=== PATIENT | male | born 1990 | race Caucasian/White ===

== ENCOUNTER 2016-07-21 07:17 | Emergency (ER) | payer BC ==
--- NOTE | 2016-07-21 07:48 | EDM.PDOC ---
ED HPI GENERAL MEDICAL PROBLEM - General Chief Complaint: Chest Pain Stated Complaint: CHEST PAIN Time Seen by Provider: 07/21/16 07:28 Source of Information: Reports: Patient History Limitations: Reports: No limitations - History of Present Illness INITIAL COMMENTS - FREE TEXT/NARRATIVE: History of present illness: [] Patient has had months of right upper quadrant abdominal pain and epigastric pain. His last episode was more than 2 days ago. He comes into the ER complaining of dizziness and nausea. He stated his told him to see a doctor today so that he could figure out why he is having his abdominal pain. He has not had any fevers, chills, cough or diarrhea. He states he has vomited a few times the past couple days but not today. Patient denies taking any meds other than a couple of ibuprofen as needed for aches and pains. Patient admits to drinking a few beers last night to get comfortable. Review of systems: As per history of present illness and below otherwise all systems reviewed and negative. Past medical history: As per history of present illness and as reviewed below otherwise noncontributory. Surgical history: As per history of present illness and as reviewed below otherwise noncontributory. Social history: No reported history of drug or alcohol abuse. Family history: As per history of present illness and as reviewed below otherwise noncontributory. Physical exam: General: Well developed, well nourished in NAD HEENT: Atraumatic, normocephalic, pupils reactive, negative for conjunctival pallor or scleral icterus, mucous membranes moist, throat clear, neck supple, nontender, trachea midline. Lungs: Clear to auscultation, breath sounds equal bilaterally, chest nontender. Heart: S1S2, regular, negative for clicks, rubs, or JVD. Abdomen: Soft, nondistended, mild tenderness in right upper quadrant no rebound or guarding. He has no crepitance or tenderness over his ribs. Negative for masses or hepatosplenomegaly. Negative for costovertebral tenderness. Pelvis: Stable nontender. Genitourinary: Deferred. Rectal: Deferred. Extremities: Atraumatic, negative for cords or calf pain. Neurovascular unremarkable. Neuro: Awake, alert, oriented. Cranial nerves II through XII unremarkable. Cerebellum unremarkable. Motor and sensory unremarkable throughout. Exam nonfocal. Diagnostics: [] Labs and x-rays done. He has mild elevation in his transaminases otherwise workup is negative Therapeutics: [] Impression: [] Right upper quadrant pain likely due to liver irritation patient needs to be worked up for hepatitis I recommended he stop all alcohol currently not taking any medications at her concerning. Plan: [] Followup with primary care physician for further workup Definitive disposition and diagnosis as appropriate pending reevaluation and review of above. Chest Pain Score (Numeric/FACES): 0 - Related Data Allergies Allergy/AdvReac Type Severity Reaction Status Date / Time No Known Allergies Allergy Verified 05/07/14 11:25 Home Meds: Home Meds . [No Known Home Meds] 05/07/14 [History] Past Medical History - Past Health History Medical/Surgical History: Denies Medical/Surgical History Social & Family History - Tobacco Use Smoking Status *Q: Never Smoker Years of Tobacco use: 10 Second Hand Smoke Exposure: No - Caffeine Use Caffeine Use: Reports: Soda, Tea - Alcohol Use Days Per Week of Alcohol Use: 4 Number of Drinks Per Day: 3 Total Drinks Per Week: 12 - Recreational Drug Use Recreational Drug Use: No ED ROS GENERAL - Review of Systems Review Of Systems: See Below (See history of present illness) ED EXAM, GI/ABD - Physical Exam Exam: See Below (See history of present illness) Course - Vital Signs Last Recorded V/S: Last Vital Signs Temp 36.3 C 07/21/16 08:22 Pulse 82 07/21/16 08:22 Resp 18 07/21/16 08:22 BP 128/81 07/21/16 08:22 Pulse Ox 96 07/21/16 08:22 - Orders/Labs/Meds Orders: Active Orders 24 hr Category Date Time Status EKG Documentation Completion [RC] STAT Care 07/21/16 07:28 Active Labs: Laboratory Tests 07/21/16 07/21/16 07/21/16 Range/Units 07:58 07:58 07:58 WBC 5.90 (4.0-11.0) K/uL RBC 4.62 (4.50-5.90) M/uL Hgb 16.0 (13.0-17.0) g/dL Hct 44.4 (38.0-50.0) % MCV 96.1 (80.0-98.0) fL MCH 34.6 H (27.0-32.0) pg MCHC 36.0 (31.0-37.0) g/dL RDW Std Deviation 46.1 (28.0-62.0) fl RDW Coeff of Raz 13 (11.0-15.0) % Plt Count 225 (150-400) K/uL MPV 10.10 (7.40-12.00) fL Neut % (Auto) 54.8 (48.0-80.0) % Lymph % (Auto) 33.2 (16.0-40.0) % [place] % (Auto) 8.8 (0.0-15.0) % Eos % (Auto) 2.9 (0.0-7.0) % Baso % (Auto) 0.3 (0.0-1.5) % Neut # (Auto) 3.2 (1.4-5.7) K/uL Lymph # (Auto) 2.0 (0.6-2.4) K/uL [place] # (Auto) 0.5 (0.0-0.8) K/uL Eos # (Auto) 0.2 (0.0-0.7) K/uL Baso # (Auto) 0.0 (0.0-0.1) K/uL Nucleated RBC % 0.0 /100WBC Nucleated RBCs # 0 K/uL Sodium 140 (136-146) mmol/L Potassium 3.7 (3.5-5.1) mmol/L Chloride 104 (98-110) mmol/L Carbon Dioxide 24 (21-31) mmol/L BUN 7 (6.0-23.0) mg/dL Creatinine 1.0 (0.6-1.5) mg/dL Est Cr Clr Drug Dosing 121.79 mL/min Estimated GFR (MDRD) > 60.0 ml/min Glucose 93 (60-110) mg/dL Calcium 9.1 (8.8-10.8) mg/dL Total Bilirubin 0.3 (0.1-1.5) mg/dL AST 59 H (5-40) IU/L ALT 69 H (8-54) IU/L Alkaline Phosphatase 94 (40-150) Troponin I < 0.10 (0.0-0.29) NG/ML Total Protein 7.4 (6.0-8.0) g/dL Albumin 4.1 (3.5-5.0) g/dL Globulin 3.3 (2.0-3.5) g/dL Albumin/Globulin Ratio 1.2 L (1.3-2.8) Lipase 45 (7-80) U/L Meds: Medications Discontinued Medications Generic Name Dose Route Start Last Admin Trade Name Freq PRN Reason Stop Dose Admin Meclizine HCl 25 mg 07/21/16 08:31 07/21/16 08:38 Antivert PO 07/21/16 08:32 25 mg ONETIME ONE Administration Ondansetron HCl 4 mg 07/21/16 08:31 07/21/16 08:38 Zofran Odt PO 07/21/16 08:32 4 mg ONETIME ONE Administration Departure - Departure Time of Disposition: 08:54 Disposition: Home, Self-Care 01 Condition: good Clinical Impression: Elevated transaminase level - Discharge Information Forms: ED Department Discharge Additional Instructions: The following information is given to patients seen in the emergency department who are being discharged to home. This information is to outline your options for follow-up care. We provide all patients seen in our emergency department with a follow-up referral. The need for follow-up, as well as the timing and circumstances, are variable depending upon the specifics of your emergency department visit. If you don't have a primary care physician on staff, we will provide you with a referral. We always advise you to contact your personal physician following an emergency department visit to inform them of the circumstance of the visit and for follow-up with them and/or the need for any referrals to a consulting specialist. The emergency department will also refer you to a specialist when appropriate. This referral assures that you have the opportunity for follow-up care with a specialist. All of these measure are taken in an effort to provide you with optimal care, which includes your follow-up. Under all circumstances we always encourage you to contact your private physician who remains a resource for coordinating your care. When calling for follow-up care, please make the office aware that this follow-up is from your recent emergency room visit. If for any reason you are refused follow-up, please contact the [facility] Emergency Department at and asked to speak to the emergency department charge nurse. Stop alcohol use Followup with primary care for further workup for liver disease. [facility] [address] [place] [id number] - My Orders Last 24 Hours: My Active Orders 07/21/16 07:28 EKG Documentation Completion [RC] STAT - Assessment/Plan Last 24 Hours: My Active Orders 07/21/16 07:28 EKG Documentation Completion [RC] STAT
[2016-07-21] MEDS ORDERED: Meclizine 25 MG Tab PO ONE (08:31)
[2016-07-21] MEDS ORDERED: Ondansetron 4 MG Tab.DIS PO ONE (08:31)
[2016-07-21 08:32] LABS: CHLORIDE,CL 104 mmol/L (98-110); SODIUM,NA 140 mmol/L (136-146)
--- NOTE | 2016-07-21 08:45 | CR ---
EXAMINATION: Portable chest radiograph. HISTORY: Shortness of breath. FINDINGS: The trachea is midline. The cardiomediastinal silhouette is within normal limits. No pulmonary infil trates, effusions or pneumothorax. Osseous structures appear unremarkable. IMPRESSION: No acute cardiopulmonary process.
[2016-07-21 09:08] VITALS: BP 126/75
== END 2016-07-21 09:09 | disposition home or self-care (01) ==
LOC: MW.ED 07:17
DX: R74.0 Nonspecific elevation of levels of transaminase and lactic acid dehydrogenase [LDH] (principal)
CPT/HCPCS: 36415; 71010; 80053; 83690; 84484; 85025; 93005; 99285; A9270; 99283

== ENCOUNTER → 2016-07-28 | Outpatient (CLI) | payer BC | LOC: MW.CHIM 15:03 | PROVIDERS: ATTEND Internal Medicine | DX: R10.9 Unspecified abdominal pain (principal); R74.8 Abnormal levels of other serum enzymes | CPT/HCPCS: 36415; 80074 ==

== ENCOUNTER → 2016-07-30 | Outpatient (CLI) | payer BC ==
--- NOTE | 2016-07-30 16:12 | US ---
EXAMINATION: Abdominal ultrasound HISTORY: Abnormal serum enzymes COMPARISON: None TECHNIQUE: Grayscale and color Doppler images obtained of the abdomen FINDINGS: The visualized pancreas appears normal. The visualized IVC and aorta appear normal. The li robina is normal in contour and echogenicity without a focal hepatic mass. The gallbladder wall thickne ss is normal. No pericholecystic fluid or shadowing gallstones. The common bile duct measures 3 mm. The spleen appears normal. The right kidney measures 10 cm and the left kidney measures 11.8 cm pole -to-pole without evidence of hydronephrosis. Normal color Doppler flow bilaterally. No abdominal asc ites. The visualized bladder appears normal. Negative sonographic Hein sign. IMPRESSION: 1. Grossly unremarkable abdominal ultrasound.
== END ==
LOC: MW.US 14:28
PROVIDERS: ATTEND Internal Medicine
DX: R74.8 Abnormal levels of other serum enzymes (principal)
CPT/HCPCS: 76700; 76700-26

== ENCOUNTER 2016-08-10 08:56 | Emergency (ER) | payer BC ==
[2016-08-10] MEDS ORDERED: Diphtheria,Pertussis(Acell),Tetanus Vaccine 0.5 ML Syringe IM ONE (09:01)
[2016-08-10] MEDS ORDERED: Lidocaine 1% 20 ML MDV INJECT ONE (09:02)
--- NOTE | 2016-08-10 09:04 | EDM.PDOC ---
ED HPI GENERAL MEDICAL PROBLEM - General Chief Complaint: Laceration Stated Complaint: CUT Time Seen by Provider: 08/10/16 09:03 Source of Information: Reports: Patient - History of Present Illness INITIAL COMMENTS - FREE TEXT/NARRATIVE: HISTORY AND PHYSICAL: History of present illness: [] Patient presents with laceration right first PIP after punching his pickup, multiple small superficial for patients on the first second and third digits and his knuckles, there is a 2 cm laceration over PIP, no obvious deformity of the hand or digits all laceration as described tendon function intact pre-and post suture entirely neurovascularly intact No fever nausea vomiting chills sweats Review of systems: As per history of present illness and below otherwise all systems reviewed and negative. Past medical history: As per history of present illness and as reviewed below otherwise noncontributory. Surgical history: As per history of present illness and as reviewed below otherwise noncontributory. Social history: No reported history of drug or alcohol abuse. Family history: As per history of present illness and as reviewed below otherwise noncontributory. Physical exam: HEENT: Atraumatic, normocephalic, pupils reactive, negative for conjunctival pallor or scleral icterus, mucous membranes moist, throat clear, neck supple, nontender, trachea midline. Lungs: Clear to auscultation, breath sounds equal bilaterally, chest nontender. Heart: S1S2, regular, negative for clicks, rubs, or JVD. Abdomen: Soft, nondistended, nontender. Negative for masses or hepatosplenomegaly. Negative for costovertebral tenderness. Pelvis: Stable nontender. Genitourinary: Deferred. Rectal: Deferred. Extremities: Atraumatic, negative for cords or calf pain. Neurovascular unremarkable. Neuro: Awake, alert, oriented. Cranial nerves II through XII unremarkable. Cerebellum unremarkable. Motor and sensory unremarkable throughout. Exam nonfocal. Skin as per history of present illness otherwise unremarkable Diagnostics: [] Patient refused x-ray right hand to rule out foreign body or fracture Therapeutics: DTaP Lidocaine #2 4-0 Prolene sutures interrupted no complication or complaint Cleansed and explored Impression: [] Laceration 2 cm linear laceration Definitive disposition and diagnosis as appropriate pending reevaluation and review of above. right index Pain Score (Numeric/FACES): 2 - Related Data Allergies Allergy/AdvReac Type Severity Reaction Status Date / Time No Known Allergies Allergy Verified 08/10/16 09:01 Home Meds: Home Meds . [No Known Home Meds] 05/07/14 [History] Past Medical History - Past Health History Medical/Surgical History: Denies Medical/Surgical History Social & Family History - Tobacco Use Smoking Status *Q: Never Smoker Years of Tobacco use: 10 Second Hand Smoke Exposure: No - Caffeine Use Caffeine Use: Reports: Soda, Tea - Alcohol Use Days Per Week of Alcohol Use: 4 Number of Drinks Per Day: 3 Total Drinks Per Week: 12 - Recreational Drug Use Recreational Drug Use: No ED ROS GENERAL - Review of Systems Review Of Systems: ROS reveals no pertinent complaints other than HPI. ED EXAM, SKIN/RASH Exam: See Below Course - Vital Signs Last Recorded V/S: Last Vital Signs Temp 36.5 C 08/10/16 09:02 Pulse 105 H 08/10/16 09:02 Resp 16 08/10/16 09:02 BP 131/84 08/10/16 09:02 Pulse Ox 96 08/10/16 09:02 - Orders/Labs/Meds Orders: Active Orders 24 hr Category Date Time Status Vaccines to be Administered [RC] PER UNIT ROUTINE Care 08/10/16 09:03 Active Meds: Medications Discontinued Medications Generic Name Dose Route Start Last Admin Trade Name Alex PRN Reason Stop Dose Admin Diphtheria/Tetanus/Acell Pertussis 0.5 ml 08/10/16 09:01 08/10/16 09:13 Adacel IM 08/10/16 09:02 0.5 ml .ONCE ONE Administration Lidocaine HCl 20 ml 08/10/16 09:02 08/10/16 09:13 Xylocaine 1% INJECT 08/10/16 09:03 20 ml ONETIME ONE Administration Departure - Departure Time of Disposition: 09:26 Disposition: Home, Self-Care 01 Condition: good Clinical Impression: Laceration - Discharge Information Forms: ED Department Discharge Additional Instructions: Standard wound care Keep wound clean and dry for 48 hours Medication as prescribed--Keflex 500 mg by mouth twice a day #20 no refill Return if read warmth or pus drainage she did develop Sutures out in 10 days [facility] [address] [place] [id number] The following information is given to patients seen in the emergency department who are being discharged to home. This information is to outline your options for follow-up care. We provide all patients seen in our emergency department with a follow-up referral. The need for follow-up, as well as the timing and circumstances, are variable depending upon the specifics of your emergency department visit. If you don't have a primary care physician on staff, we will provide you with a referral. We always advise you to contact your personal physician following an emergency department visit to inform them of the circumstance of the visit and for follow-up with them and/or the need for any referrals to a consulting specialist. The emergency department will also refer you to a specialist when appropriate. This referral assures that you have the opportunity for follow-up care with a specialist. All of these measure are taken in an effort to provide you with optimal care, which includes your follow-up. Under all circumstances we always encourage you to contact your private physician who remains a resource for coordinating your care. When calling for follow-up care, please make the office aware that this follow-up is from your recent emergency room visit. If for any reason you are refused follow-up, please contact the [facility] emergency department at and asked to speak to the emergency department charge nurse. - My Orders Last 24 Hours: My Active Orders 08/10/16 09:03 Vaccines to be Administered [RC] PER UNIT ROUTINE - Assessment/Plan Last 24 Hours: My Active Orders 08/10/16 09:03 Vaccines to be Administered [RC] PER UNIT ROUTINE
[2016-08-10 09:39] VITALS: BP 127/78
== END 2016-08-10 09:36 | disposition home or self-care (01) ==
LOC: MW.ED 08:56
DX: S61.210A Laceration without foreign body of right index finger without damage to nail, initial encounter (principal); Z23 Encounter for immunization; W22.8XXA Striking against or struck by other objects, initial encounter
CPT/HCPCS: 12001; 90471; 90715; 99282; 99283-25

== ENCOUNTER 2019-01-12 05:43 | Emergency (ER) | payer BC, OTHER ==
[2019-01-12] MEDS ORDERED: LORazepam 2 MG/ML SDV IVPUSH ONE (06:12)
[2019-01-12] MEDS ORDERED: Sodium Chloride 0.9% 10 ML Syringe FLUSH PRN (06:12)
[2019-01-12] MEDS ORDERED: Ondansetron 4 MG/2 ML SDV IVPUSH ONE (06:12)
[2019-01-12] MEDS ORDERED: Sodium Chloride 0.9% 2.5 ML Syringe FLUSH PRN (06:12)
--- NOTE | 2019-01-12 06:15 | EDM.PDOC ---
ED HPI GENERAL MEDICAL PROBLEM - General Chief Complaint: Drug or Alcohol Abuse Stated Complaint: VOMITING, ANXIETY, ALCOHOL Time Seen by Provider: 01/12/19 05:55 Source of Information: Reports: Patient History Limitations: Reports: No Limitations - History of Present Illness INITIAL COMMENTS - FREE TEXT/NARRATIVE: History of present illness: []Patient has been binge drinking for 4 days, his last drink was last night at around 6 PM and has been vomiting continuously since midnight. Patient has done this several times in the past and usually treated at [facility]. Patient's primary doctor has him on Ativan twice a day for anxiety. Patient is requesting hydration and does not want go through detox. Review of systems: As per history of present illness and below otherwise all systems reviewed and negative. Past medical history: As per history of present illness and as reviewed below otherwise noncontributory. Surgical history: As per history of present illness and as reviewed below otherwise noncontributory. Social history: No reported history of drug or alcohol abuse. Family history: As per history of present illness and as reviewed below otherwise noncontributory. Physical exam: General: Well developed, well nourished in NAD HEENT: Atraumatic, normocephalic, pupils reactive, negative for conjunctival pallor or scleral icterus, mucous membranes moist, throat clear, neck supple, nontender, trachea midline. Lungs: Clear to auscultation, breath sounds equal bilaterally, chest nontender. Heart: S1S2, regular, negative for clicks, rubs, or JVD. Abdomen: NABS, Soft, nondistended, nontender. Negative for masses or hepatosplenomegaly. Negative for costovertebral tenderness. Pelvis: Stable nontender. Genitourinary: Deferred. Rectal: Deferred. Extremities: Atraumatic, negative for cords or calf pain. Neurovascular unremarkable. Neuro: Awake, alert, oriented. Cranial nerves II through XII unremarkable. Cerebellum unremarkable. Motor and sensory unremarkable throughout. Exam nonfocal. Skin:warm and dry Diagnostics: CBC, chemistry Therapeutics: IV hydration, Zofran, Ativan ED Course: stable Impression: Alcohol withdrawal Prescriptions: Librium, Zofran Plan: Take meds as directed, follow up with your primary care physician, return to ER if symptoms worsen or change. Definitive disposition and diagnosis as appropriate pending reevaluation and review of above. - Related Data Allergies Allergy/AdvReac Type Severity Reaction Status Date / Time No Known Allergies Allergy Verified 09/17/17 09:26 MDT Home Meds: Home Meds LORazepam [Ativan] 0.5 mg PO TID PRN 01/12/19 [History] Ondansetron HCl [Zofran] 4 mg PO Q4HR #12 tablet 01/12/19 [Rx] chlordiazePOXIDE [Librium] 25 mg PO TID #15 cap 01/12/19 [Rx] Past Medical History - Past Health History Medical/Surgical History: Denies Medical/Surgical History HEENT History: Reports: None Gastrointestinal History: Reports: GERD Psychiatric History: Reports: Addiction, Anxiety, Depression Other Psychiatric History: etoh abuse - Past Surgical History HEENT Surgical History: Reports: Adenoidectomy, Tonsillectomy Musculoskeletal Surgical History: Reports: Other (See Below) Other Musculoskeletal Surgeries/Procedures:: right hand sx Social & Family History - Family History Family Medical History: Noncontributory - Tobacco Use Years of Tobacco use: 10 Packs/Tins Daily: 1 - Caffeine Use Caffeine Use: Reports: Soda, Tea Caffeine Use Comment: 1 cup a week - Recreational Drug Use Recreational Drug Use: No ED ROS GENERAL - Review of Systems Review Of Systems: See Below ED EXAM, GENERAL - Physical Exam Exam: See Below Course - Vital Signs Last Recorded V/S: Last Vital Signs Temp 97.7 F 01/12/19 05:50 Pulse 73 01/12/19 05:50 Resp 16 01/12/19 05:50 BP 128/71 01/12/19 05:50 Pulse Ox 97 01/12/19 05:50 - Orders/Labs/Meds Orders: Active Orders 24 hr Category Date Time Status Sodium Chloride 0.9% [Saline Flush] Med 01/12/19 06:12 Active 10 ml FLUSH ASDIRECTED PRN Sodium Chloride 0.9% [Saline Flush] Med 01/12/19 06:12 Active 2.5 ml FLUSH ASDIRECTED PRN Saline Lock Insert [OM.PC] Stat Oth 01/12/19 06:12 Ordered Medication Orders Sodium Chloride (Saline Flush) 10 ml FLUSH ASDIRECTED PRN PRN Reason: Keep Vein Open Sodium Chloride (Saline Flush) 2.5 ml FLUSH ASDIRECTED PRN PRN Reason: Keep Vein Open Labs: Laboratory Tests 01/12/19 01/12/19 Range/Units 06:25 06:25 WBC 8.42 (4.0-11.0) K/uL RBC 4.65 (4.50-5.90) M/uL Hgb 15.6 (13.0-17.0) g/dL Hct 42.2 (38.0-50.0) % MCV 90.8 (80.0-98.0) fL MCH 33.5 H (27.0-32.0) pg MCHC 37.0 (31.0-37.0) g/dL RDW Std Deviation 45.6 (28.0-62.0) fl RDW Coeff of Raz 14 (11.0-15.0) % Plt Count 230 (150-400) K/uL MPV 10.30 (7.40-12.00) fL Neut % (Auto) 78.1 (48.0-80.0) % Lymph % (Auto) 13.7 L (16.0-40.0) % [place] % (Auto) 8.0 (0.0-15.0) % Eos % (Auto) 0.0 (0.0-7.0) % Baso % (Auto) 0.2 (0.0-1.5) % Neut # (Auto) 6.6 H (1.4-5.7) K/uL Lymph # (Auto) 1.2 (0.6-2.4) K/uL [place] # (Auto) 0.7 (0.0-0.8) K/uL Eos # (Auto) 0.0 (0.0-0.7) K/uL Baso # (Auto) 0.0 (0.0-0.1) K/uL Nucleated RBC % 0.0 /100WBC Nucleated RBCs # 0 K/uL Sodium 142 (136-148) mmol/L Potassium 3.4 L (3.5-5.1) mmol/L Chloride 101 (98-107) mmol/L Carbon Dioxide 25.5 (21.0-32.0) mmol/L BUN 6 L (7.0-18.0) mg/dL Creatinine 1.0 (0.8-1.3) mg/dL Est Cr Clr Drug Dosing 122.07 mL/min Estimated GFR (MDRD) > 60.0 ml/min Glucose 82 (74-106) mg/dL Calcium 9.7 (8.5-10.1) mg/dL Total Bilirubin 0.6 (0.2-1.0) mg/dL AST 49 H (15-37) IU/L ALT 72 H (14-63) IU/L Alkaline Phosphatase 85 (46-116) U/L Total Protein 7.8 (6.4-8.2) g/dL Albumin 4.3 (3.4-5.0) g/dL Globulin 3.5 (2.6-4.0) g/dL Albumin/Globulin Ratio 1.2 (0.9-1.6) Meds: Medications Generic Name Dose Route Start Last Admin Trade Name Freq PRN Reason Stop Dose Admin Sodium Chloride 10 ml 01/12/19 06:12 Saline Flush FLUSH ASDIRECTED PRN Keep Vein Open Sodium Chloride 2.5 ml 01/12/19 06:12 Saline Flush FLUSH ASDIRECTED PRN Keep Vein Open Discontinued Medications Generic Name Dose Route Start Last Admin Trade Name Freq PRN Reason Stop Dose Admin Lorazepam 1 mg 01/12/19 06:12 01/12/19 06:29 Ativan IVPUSH 01/12/19 06:13 1 mg ONETIME ONE Administration Ondansetron HCl 4 mg 01/12/19 06:12 01/12/19 06:29 Zofran IVPUSH 01/12/19 06:13 4 mg ONETIME ONE Administration Departure - Departure Time of Disposition: 07:10 Disposition: Home, Self-Care 01 Condition: Good Clinical Impression: Alcohol withdrawal Qualifiers: Complication of substance-induced condition: uncomplicated Qualified Code(s): F10.230 - Alcohol dependence with withdrawal, uncomplicated - Discharge Information *PRESCRIPTION DRUG MONITORING PROGRAM REVIEWED*: No *COPY OF PRESCRIPTION DRUG MONITORING REPORT IN PATIENT PAULO: No Prescriptions: Ondansetron HCl [Zofran] 4 mg PO Q4HR #12 tablet chlordiazePOXIDE [Librium] 25 mg PO TID #15 cap Referrals: PCP,None [Primary Care Provider] - Forms: ED Department Discharge Additional Instructions: The following information is given to patients seen in the emergency department who are being discharged to home. This information is to outline your options for follow-up care. We provide all patients seen in our emergency department with a follow-up referral. The need for follow-up, as well as the timing and circumstances, are variable depending upon the specifics of your emergency department visit. If you don't have a primary care physician on staff, we will provide you with a referral. We always advise you to contact your personal physician following an emergency department visit to inform them of the circumstance of the visit and for follow-up with them and/or the need for any referrals to a consulting specialist. The emergency department will also refer you to a specialist when appropriate. This referral assures that you have the opportunity for follow-up care with a specialist. All of these measure are taken in an effort to provide you with optimal care, which includes your follow-up. Under all circumstances we always encourage you to contact your private physician who remains a resource for coordinating your care. When calling for follow-up care, please make the office aware that this follow-up is from your recent emergency room visit. If for any reason you are refused follow-up, please contact the [facility] Emergency Department at and asked to speak to the emergency department charge nurse. [facility] [address] [place] [address] - My Orders Last 24 Hours: My Active Orders 01/12/19 06:12 Sodium Chloride 0.9% [Saline Flush] 10 ml FLUSH ASDIRECTED PRN Sodium Chloride 0.9% [Saline Flush] 2.5 ml FLUSH ASDIRECTED PRN Saline Lock Insert [OM.PC] Stat - Assessment/Plan Last 24 Hours: My Active Orders 01/12/19 06:12 Sodium Chloride 0.9% [Saline Flush] 10 ml FLUSH ASDIRECTED PRN Sodium Chloride 0.9% [Saline Flush] 2.5 ml FLUSH ASDIRECTED PRN Saline Lock Insert [OM.PC] Stat
[2019-01-12 06:58] LABS: BLOOD UREA NITROGEN,BUN 6 mg/dL (7.0-18.0); CARBON DIOXIDE,CO2 25.5 mmol/L (21.0-32.0); CHLORIDE,CL 101 mmol/L (98-107); GLUCOSE RANDOM 82 mg/dL (74-106); POTASSIUM,K 3.4 mmol/L (3.5-5.1); SODIUM,NA 142 mmol/L (136-148)
[2019-01-12 08:11] VITALS: BP 108/60; PULSE 78
== END 2019-01-12 08:10 | disposition home or self-care (01) ==
LOC: MW.ED 05:43
DX: F10.230 Alcohol dependence with withdrawal, uncomplicated (principal); F41.9 Anxiety disorder, unspecified; F32.9 Major depressive disorder, single episode, unspecified; F17.200 Nicotine dependence, unspecified, uncomplicated; Z79.899 Other long term (current) drug therapy
CPT/HCPCS: 36415; 80053; 85025; 96374; 96375; 99284; J2060; J2405; 99283

== ENCOUNTER 2019-01-28 04:40 | Emergency (ER) | payer BC ==
[2019-01-28] MEDS ORDERED: Sodium Chloride 0.9% 10 ML Syringe FLUSH PRN (05:03)
[2019-01-28] MEDS ORDERED: Ondansetron 4 MG/2 ML SDV IVPUSH ONE (05:03)
[2019-01-28] MEDS ORDERED: Sodium Chloride 0.9% 2.5 ML Syringe FLUSH PRN (05:03)
[2019-01-28] MEDS ORDERED: LORazepam 2 MG/ML SDV IVPUSH ONE (05:03)
[2019-01-28] MEDS ORDERED: Sodium Chloride 0.9% 1,000 ML IV ONE (05:03)
--- NOTE | 2019-01-28 05:10 | EDM.PDOC ---
ED HPI GENERAL MEDICAL PROBLEM - General Chief Complaint: Drug or Alcohol Abuse Stated Complaint: PT IS GOING THROUGH WITHDRAWALS Time Seen by Provider: 01/28/19 04:53 - History of Present Illness INITIAL COMMENTS - FREE TEXT/NARRATIVE: HISTORY AND PHYSICAL: History of present illness: The patient is a 28-year-old male who is a chronic alcohol user and who was seen here the beginning of the month on January 12 for concerned about withdrawal after an episode of binge drinking and received Zofran and Librium for home and who represented this wording saying that he drank all night with his last drink about 11 PM and now he is concerned about nausea vomiting dehydration and early withdrawal symptoms. The patient also tells me he was in [place] last night in their ER for IV fluids. He did tell me that he has connected as an outpatient with a provider in [place] and was given some medication to help him quit alcohol use but he has not started those because he has been drinking alcohol. He says that he is discussed with this provider his addiction and his problems and he feels comfortable working with this provider. Here this evening he did drink this evening and then started having nausea and vomiting and feels dehydrated and shaky and somewhat anxious. He has a history of anxiety and has been on Ativan in the past for this. He has not had any trauma or falls and has no head neck or back pain no chest pain or shortness of breath no abdominal pain but has had the vomiting without diarrhea. He has no weakness numbness or tingling or pain in his extremities. The patient says that he used all the Zofran he was given from his last visit here in the ED and he did not think the Librium was working so he did not take it. Review of systems: As per history of present illness and below otherwise all systems reviewed and negative. Past medical history: As per history of present illness and as reviewed below otherwise noncontributory. Surgical history: As per history of present illness and as reviewed below otherwise noncontributory. Social history: No reported history of drug or alcohol abuse. Family history: As per history of present illness and as reviewed below otherwise noncontributory. Physical exam: General: Well-developed well-nourished man who is nontoxic and not tremulous on my evaluation. When he is talking to and distracted he has no evidence of any tremulousness but when he wants he will raise his hands and start voluntarily shaking them back and forth telling me that he is tremulous. He is not tachycardic and his other vital signs are noted by me. HEENT: Atraumatic, normocephalic, pupils reactive, negative for conjunctival pallor or scleral icterus, mucous membranes moist, throat clear, neck supple, nontender, trachea midline. Lungs: Clear to auscultation, breath sounds equal bilaterally, chest nontender. Heart: S1S2, regular rate and rhythm without any tachycardia and no overt murmurs are appreciated Abdomen: Soft, nondistended, nontender. Negative for masses or hepatosplenomegaly. Negative for costovertebral tenderness. Pelvis: Stable nontender. Genitourinary: Deferred. Rectal: Deferred. Extremities: Atraumatic, negative for cords or calf pain. Neurovascular unremarkable. Full range of motion without defects or tenderness. Neuro: Awake, alert, oriented. Cranial nerves II through XII unremarkable. Cerebellum unremarkable. Motor and sensory unremarkable throughout. Exam nonfocal. I do not see any involuntary tremulousness on my evaluation when the patient is at rest and distracted Diagnostics: CBC CMP magnesium Therapeutics: IV fluids Zofran Ativan I discussed with the patient that I could help him this morning with his vomiting and mild dehydration but I stressed to him that he cannot come to the emergency department either here or in [place] every night that he drinks to get IV fluids so that he doesn't feel dehydrated. I will give him Zofran for home. Explained to him that he is likely vomiting because alcohol is a gastric irritant and that if he refrains from drinking alcohol this symptom will dissipate. He states understanding and says that he will connect with his provider on an outpatient basis in [place] and discuss option plans going forward. Impression: Vomiting, shakiness and dehydration status post alcohol use and abuse, acute on chronic Definitive disposition and diagnosis as appropriate pending reevaluation and review of above. - Related Data Allergies Allergy/AdvReac Type Severity Reaction Status Date / Time No Known Allergies Allergy Verified 01/28/19 04:53 Home Meds: Home Meds Anti Anxiety Med 01/28/19 [History] Magnesium 400 mg PO BID 01/28/19 [History] Past Medical History - Past Health History Medical/Surgical History: Denies Medical/Surgical History HEENT History: Reports: None Gastrointestinal History: Reports: GERD Musculoskeletal History: Reports: None Psychiatric History: Reports: Addiction, Anxiety, Depression Other Psychiatric History: etoh abuse - Infectious Disease History Infectious Disease History: Reports: Chicken Pox - Past Surgical History HEENT Surgical History: Reports: Adenoidectomy, Tonsillectomy GI Surgical History: Reports: None Musculoskeletal Surgical History: Reports: Other (See Below) Other Musculoskeletal Surgeries/Procedures:: right hand sx Social & Family History - Family History Family Medical History: Noncontributory - Tobacco Use Smoking Status *Q: Never Smoker Second Hand Smoke Exposure: No - Caffeine Use Caffeine Use: Reports: None Caffeine Use Comment: 1 cup a week - Alcohol Use Days Per Week of Alcohol Use: 2 Number of Drinks Per Day: 2 Total Drinks Per Week: 4 - Recreational Drug Use Recreational Drug Use: No ED ROS GENERAL - Review of Systems Review Of Systems: Comprehensive ROS is negative, except as noted in HPI. ED EXAM, GENERAL - Physical Exam Exam: See Below (See dictation) Course - Vital Signs Last Recorded V/S: Last Vital Signs Temp 36.1 C 01/28/19 04:48 Pulse 83 01/28/19 04:48 Resp 19 01/28/19 04:48 BP 129/82 01/28/19 04:48 Pulse Ox 96 01/28/19 04:48 - Orders/Labs/Meds Orders: Active Orders 24 hr Category Date Time Status Sodium Chloride 0.9% [Normal Saline] 1,000 ml Med 01/28/19 05:03 Active IV STAT Sodium Chloride 0.9% [Saline Flush] Med 01/28/19 05:03 Active 10 ml FLUSH ASDIRECTED PRN Sodium Chloride 0.9% [Saline Flush] Med 01/28/19 05:03 Active 2.5 ml FLUSH ASDIRECTED PRN Saline Lock Insert [OM.PC] Stat Oth 01/28/19 05:00 Ordered Medication Orders Sodium Chloride (Normal Saline) 1,000 mls @ 999 mls/hr IV STAT ONE Stop: 01/28/19 06:03 Last Admin: 01/28/19 05:10 Dose: 999 mls/hr Sodium Chloride (Saline Flush) 10 ml FLUSH ASDIRECTED PRN PRN Reason: Keep Vein Open Sodium Chloride (Saline Flush) 2.5 ml FLUSH ASDIRECTED PRN PRN Reason: Keep Vein Open Labs: Laboratory Tests 01/28/19 01/28/19 Range/Units 05:05 05:05 WBC 8.64 (4.0-11.0) K/uL RBC 4.49 L (4.50-5.90) M/uL Hgb 14.8 (13.0-17.0) g/dL Hct 42.2 (38.0-50.0) % MCV 94.0 (80.0-98.0) fL MCH 33.0 H (27.0-32.0) pg MCHC 35.1 (31.0-37.0) g/dL RDW Std Deviation 48.3 (28.0-62.0) fl RDW Coeff of Raz 14 (11.0-15.0) % Plt Count 252 (150-400) K/uL MPV 9.80 (7.40-12.00) fL Neut % (Auto) 76.2 (48.0-80.0) % Lymph % (Auto) 18.1 (16.0-40.0) % Wells % (Auto) 5.2 (0.0-15.0) % Eos % (Auto) 0.3 (0.0-7.0) % Baso % (Auto) 0.2 (0.0-1.5) % Neut # (Auto) 6.6 H (1.4-5.7) K/uL Lymph # (Auto) 1.6 (0.6-2.4) K/uL Wells # (Auto) 0.5 (0.0-0.8) K/uL Eos # (Auto) 0.0 (0.0-0.7) K/uL Baso # (Auto) 0.0 (0.0-0.1) K/uL Nucleated RBC % 0.0 /100WBC Nucleated RBCs # 0 K/uL Sodium 138 (136-148) mmol/L Potassium 3.6 (3.5-5.1) mmol/L Chloride 101 (98-107) mmol/L Carbon Dioxide 22.9 (21.0-32.0) mmol/L BUN 6 L (7.0-18.0) mg/dL Creatinine 0.9 (0.8-1.3) mg/dL Est Cr Clr Drug Dosing 135.63 mL/min Estimated GFR (MDRD) > 60.0 ml/min Glucose 75 (74-106) mg/dL Calcium 8.8 (8.5-10.1) mg/dL Magnesium 1.8 (1.8-2.4) mg/dL Total Bilirubin 0.6 (0.2-1.0) mg/dL AST 35 (15-37) IU/L ALT 47 (14-63) IU/L Alkaline Phosphatase 83 (46-116) U/L Total Protein 7.6 (6.4-8.2) g/dL Albumin 4.1 (3.4-5.0) g/dL Globulin 3.5 (2.6-4.0) g/dL Albumin/Globulin Ratio 1.2 (0.9-1.6) Meds: Medications Generic Name Dose Route Start Last Admin Trade Name Freq PRN Reason Stop Dose Admin Sodium Chloride 1,000 mls @ 999 mls/hr 01/28/19 05:03 01/28/19 05:10 Normal Saline IV 01/28/19 06:03 999 mls/hr STAT ONE Administration Sodium Chloride 10 ml 01/28/19 05:03 Saline Flush FLUSH ASDIRECTED PRN Keep Vein Open Sodium Chloride 2.5 ml 01/28/19 05:03 Saline Flush FLUSH ASDIRECTED PRN Keep Vein Open Discontinued Medications Generic Name Dose Route Start Last Admin Trade Name Freq PRN Reason Stop Dose Admin Lorazepam 1 mg 01/28/19 05:03 01/28/19 05:14 Ativan IVPUSH 01/28/19 05:04 1 mg ONETIME ONE Administration Ondansetron HCl 4 mg 01/28/19 05:03 01/28/19 05:14 Zofran IVPUSH 01/28/19 05:04 4 mg ONETIME ONE Administration Departure - Departure Time of Disposition: 05:43 Disposition: Home, Self-Care 01 Condition: Good Clinical Impression: Alcohol abuse, Shakiness Vomiting Qualifiers: Vomiting type: unspecified Vomiting Intractability: non-intractable Nausea presence: with nausea Qualified Code(s): R11.2 - Nausea with vomiting, unspecified - Discharge Information Referrals: PCP,None [Primary Care Provider] - Forms: ED Department Discharge Additional Instructions: The following information is given to patients seen in the emergency department who are being discharged to home. This information is to outline your options for follow-up care. We provide all patients seen in our emergency department with a follow-up referral. The need for follow-up, as well as the timing and circumstances, are variable depending upon the specifics of your emergency department visit. If you don't have a primary care physician on staff, we will provide you with a referral. We always advise you to contact your personal physician following an emergency department visit to inform them of the circumstance of the visit and for follow-up with them and/or the need for any referrals to a consulting specialist. The emergency department will also refer you to a specialist when appropriate. This referral assures that you have the opportunity for followup care with a specialist. All of these measure are taken in an effort to provide you with optimal care, which includes your followup. Under all circumstances we always encourage you to contact your private physician who remains a resource for coordinating your care. When calling for followup care, please make the office aware that this follow-up is from your recent emergency room visit. If for any reason you are refused follow-up, please contact the [facility] emergency department at and ask to speak to the emergency department charge nurse. [facility] Primary care- [place] [address] Push hydration and eat bites of bland food and use Zofran as given to you from [facility] for nausea and vomiting. Please refrain from alcohol use as well as caffeine as these are irritants to stomach which can trigger vomiting and stomach upset. Please connect with your provider in [place] or one of ours for further care and help with your chronic alcohol issues. Return to ER as needed and as discussed - My Orders Last 24 Hours: My Active Orders 01/28/19 05:00 Saline Lock Insert [OM.PC] Stat 01/28/19 05:03 Sodium Chloride 0.9% [Normal Saline] 1,000 ml IV STAT Sodium Chloride 0.9% [Saline Flush] 10 ml FLUSH ASDIRECTED PRN Sodium Chloride 0.9% [Saline Flush] 2.5 ml FLUSH ASDIRECTED PRN - Assessment/Plan Last 24 Hours: My Active Orders 01/28/19 05:00 Saline Lock Insert [OM.PC] Stat 01/28/19 05:03 Sodium Chloride 0.9% [Normal Saline] 1,000 ml IV STAT Sodium Chloride 0.9% [Saline Flush] 10 ml FLUSH ASDIRECTED PRN Sodium Chloride 0.9% [Saline Flush] 2.5 ml FLUSH ASDIRECTED PRN
[2019-01-28 05:32] LABS: BLOOD UREA NITROGEN,BUN 6 mg/dL (7.0-18.0); CARBON DIOXIDE,CO2 22.9 mmol/L (21.0-32.0); CHLORIDE,CL 101 mmol/L (98-107); GLUCOSE RANDOM 75 mg/dL (74-106); POTASSIUM,K 3.6 mmol/L (3.5-5.1); SODIUM,NA 138 mmol/L (136-148)
[2019-01-28 06:15] VITALS: BP 105/66; PULSE 65
== END 2019-01-28 06:14 | disposition home or self-care (01) ==
LOC: MW.ED 04:40
DX: F10.20 Alcohol dependence, uncomplicated (principal); R25.1 Tremor, unspecified; R11.2 Nausea with vomiting, unspecified; F41.9 Anxiety disorder, unspecified; Z79.899 Other long term (current) drug therapy
CPT/HCPCS: 36415; 80053; 83735; 85025; 96361; 96374; 96375; 99283; J2060; J2405; J7040; 99284

== ENCOUNTER 2019-05-09 09:02 | Emergency (ER) | payer BC, OTHER ==
[2019-05-09] MEDS ORDERED: Ketorolac 30 MG/ML SDV IVPUSH ONE (10:04)
[2019-05-09] MEDS ORDERED: Sodium Chloride 0.9% 1,000 ML IV ONE (10:04)
[2019-05-09] MEDS ORDERED: Ondansetron 4 MG/2 ML SDV IVPUSH ONE (10:04)
--- NOTE | 2019-05-09 10:20 | EDM.PDOC ---
ED HPI GENERAL MEDICAL PROBLEM - General Chief Complaint: Gastrointestinal Problem Stated Complaint: VOMITING Time Seen by Provider: 05/09/19 09:54 Source of Information: Reports: Patient History Limitations: Reports: No Limitations - History of Present Illness INITIAL COMMENTS - FREE TEXT/NARRATIVE: HISTORY AND PHYSICAL: History of present illness: Patient is a 28-year-old male who presents to the ED today with concern of vomiting since last night. Patient states he has been sober from alcohol for the past 4 to 5 months and has not had a single drop of alcohol yesterday. Patient states he drank one 750 ounce bottle of hard alcohol yesterday and has been vomiting since last night. Patient states his last episode of vomiting was about an hour before coming to the ED. Patient states he has not tried to drink any fluids with fear of vomiting. Patient states he used to be addicted to alcohol and relapsed last night. Patient denies any health history or any other symptoms or concerns. Patient denies fever, chills, chest pain, shortness of breath, or cough. Denies headache, neck stiff ness, change in vision, syncope, or near syncope. Denies abdominal pain, diarrhea, constipation, or dysuria. Has not noted any blood in urine or stool. Patient has been eating and drinking appropriately. Review of systems: As per history of present illness and below otherwise all systems reviewed and negative. Past medical history: As per history of present illness and as reviewed below otherwise noncontributory. Surgical history: As per history of present illness and as reviewed below otherwise noncontributory. Social history: See social history for further information Family history: As per history of present illness and as reviewed below otherwise noncontributory. Physical exam: General: Patient is alert, oriented, and in no acute distress. Patient sitting comfortably on exam table. HEENT: Atraumatic, normocephalic, pupils equal and reactive bilaterally, negative for conjunctival pallor or scleral icterus, mucous membranes moist, TMs normal bilaterally, throat clear, neck supple, nontender, trachea midline. No drooling or trismus noted. No meningeal signs. No hot potato voice noted. Lungs: Clear to auscultation, breath sounds equal bilaterally, chest nontender. Heart: S1S2, regular rate and rhythm without overt murmur Abdomen: Soft, nondistended, nontender. Negative for masses or hepatosplenomegaly. Negative for costovertebral tenderness. Pelvis: Stable nontender. Genitourinary: Deferred. Rectal: Deferred. Skin: Intact, warm, dry. No lesions or rashes noted. Extremities: Atraumatic, negative for cords or calf pain. Neurovascular unremarkable. Neuro: Awake, alert, oriented. Cranial nerves II through XII unremarkable. Cerebellum unremarkable. Motor and sensory unremarkable throughout. Exam nonfocal. Notes: Patient has not had any episodes of vomiting today in the ED and able to tolerate p.o. intake without vomiting. Discussed importance for follow-up with a primary care provider as well as establishing with a treatment facility. Voices understanding and is agreeable to plan of care. Denies any further questions or concerns at this time. Diagnostics: CBC, CMP, UA, Lipase Therapeutics: NS, Zofran Prescription: Zofran Impression: h/o vomiting Alcohol abuse Plan: 1. Take medication as prescribed. Encourage small but frequent sips of fluid to prevent dehydration. 2. Follow-up with her primary care provider and treatment facility as discussed. Return to the ED as needed and as discussed. Definitive disposition and diagnosis as appropriate pending reevaluation and review of above. epigastric pain Pain Score (Numeric/FACES): 6 - Related Data Allergies Allergy/AdvReac Type Severity Reaction Status Date / Time No Known Allergies Allergy Verified 03/08/19 04:45 [facility] Home Meds: Home Meds Ondansetron [Zofran ODT] 4 mg PO Q6H PRN #8 tab.dis 05/09/19 [Rx] Past Medical History - Past Health History Medical/Surgical History: Denies Medical/Surgical History HEENT History: Reports: None Gastrointestinal History: Reports: GERD Musculoskeletal History: Reports: None Psychiatric History: Reports: Addiction, Anxiety Other Psychiatric History: etoh abuse - Infectious Disease History Infectious Disease History: Reports: Chicken Pox - Past Surgical History HEENT Surgical History: Reports: Adenoidectomy, Oral Surgery, Tonsillectomy Musculoskeletal Surgical History: Reports: ORIF Social & Family History - Family History Family Medical History: Noncontributory - Tobacco Use Smoking Status *Q: Current Every Day Smoker Years of Tobacco use: 10 Packs/Tins Daily: 1 - Caffeine Use Caffeine Use: Reports: Coffee Caffeine Use Comment: 1 cup a week - Recreational Drug Use Recreational Drug Use: No - Living Situation & Occupation Living situation: Reports: Single, with Significant Other (Girlfriend), with Family (2 kids) Occupation: Employed ED ROS GENERAL - Review of Systems Review Of Systems: Comprehensive ROS is negative, except as noted in HPI. ED EXAM, GENERAL - Physical Exam Exam: See Below (see dictation) Course - Vital Signs Last Recorded V/S: Last Vital Signs Temp 96.9 F 05/09/19 09:14 Pulse 89 05/09/19 09:14 Resp 16 05/09/19 09:14 BP 117/74 05/09/19 09:14 Pulse Ox 95 05/09/19 09:14 - Orders/Labs/Meds Orders: Active Orders 24 hr Category Date Time Status UA RFX ALE AND CULT IF INDIC [URIN] Stat Lab 05/09/19 10:04 Ordered Labs: Laboratory Tests 05/09/19 05/09/19 Range/Units 10:08 10:08 WBC 8.16 (4.0-11.0) K/uL RBC 4.78 (4.50-5.90) M/uL Hgb 15.7 (13.0-17.0) g/dL Hct 46.9 (38.0-50.0) % MCV 98.1 H (80.0-98.0) fL MCH 32.8 H (27.0-32.0) pg MCHC 33.5 (31.0-37.0) g/dL RDW Std Deviation 49.9 (28.0-62.0) fl RDW Coeff of Raz 14 (11.0-15.0) % Plt Count 286 (150-400) K/uL MPV 9.80 (7.40-12.00) fL Neut % (Auto) 76.4 (48.0-80.0) % Lymph % (Auto) 18.0 (16.0-40.0) % Rock % (Auto) 5.3 (0.0-15.0) % Eos % (Auto) 0.1 (0.0-7.0) % Baso % (Auto) 0.2 (0.0-1.5) % Neut # (Auto) 6.2 H (1.4-5.7) K/uL Lymph # (Auto) 1.5 (0.6-2.4) K/uL Rock # (Auto) 0.4 (0.0-0.8) K/uL Eos # (Auto) 0.0 (0.0-0.7) K/uL Baso # (Auto) 0.0 (0.0-0.1) K/uL Nucleated RBC % 0.0 /100WBC Nucleated RBCs # 0 K/uL Sodium 144 (136-148) mmol/L Potassium 3.7 (3.5-5.1) mmol/L Chloride 104 (98-107) mmol/L Carbon Dioxide 26.0 (21.0-32.0) mmol/L BUN 8 (7.0-18.0) mg/dL Creatinine 0.8 (0.8-1.3) mg/dL Est Cr Clr Drug Dosing 152.59 mL/min Estimated GFR (MDRD) > 60.0 ml/min Glucose 80 (74-106) mg/dL Calcium 8.9 (8.5-10.1) mg/dL Total Bilirubin 0.8 (0.2-1.0) mg/dL AST 38 H (15-37) IU/L ALT 51 (14-63) IU/L Alkaline Phosphatase 76 (46-116) U/L Total Protein 7.3 (6.4-8.2) g/dL Albumin 3.9 (3.4-5.0) g/dL Globulin 3.4 (2.6-4.0) g/dL Albumin/Globulin Ratio 1.1 (0.9-1.6) Lipase 140 (73-393) U/L Meds: Medications Discontinued Medications Generic Name Dose Route Start Last Admin Trade Name Freq PRN Reason Stop Dose Admin Sodium Chloride 1,000 mls @ 999 mls/hr 05/09/19 10:05/09/19 10:10 Normal Saline IV 05/09/19 11:04 999 mls/hr BOLUS ONE Administration Ketorolac Tromethamine 30 mg 05/09/19 10:05/09/19 10:10 Toradol IVPUSH 05/09/19 10:05 30 mg ONETIME ONE Administration Ondansetron HCl 4 mg 05/09/19 10:05/09/19 10:11 Zofran IVPUSH 05/09/19 10:05 4 mg ONETIME ONE Administration Departure - Departure Time of Disposition: 11:30 Disposition: Home, Self-Care 01 Clinical Impression: History of vomiting, Alcohol abuse - Discharge Information Prescriptions: Ondansetron [Zofran ODT] 4 mg PO Q6H PRN #8 tab.dis PRN Reason: Nausea/Vomiting Referrals: PCP,None [Primary Care Provider] - Forms: ED Department Discharge Additional Instructions: The following information is given to patients seen in the emergency department who are being discharged to home. This information is to outline your options for follow-up care. We provide all patients seen in our emergency department with a follow-up referral. The need for follow-up, as well as the timing and circumstances, are variable depending upon the specifics of your emergency department visit. If you don't have a primary care physician on staff, we will provide you with a referral. We always advise you to contact your personal physician following an emergency department visit to inform them of the circumstance of the visit and for follow-up with them and/or the need for any referrals to a consulting specialist. The emergency department will also refer you to a specialist when appropriate. This referral assures that you have the opportunity for follow-up care with a specialist. All of these measure are taken in an effort to provide you with optimal care, which includes your follow-up. Under all circumstances we always encourage you to contact your private physician who remains a resource for coordinating your care. When calling for follow-up care, please make the office aware that this follow-up is from your recent emergency room visit. If for any reason you are refused follow-up, please contact the [facility] Emergency Department at and asked to speak to the emergency department charge nurse. [facility] Primary Care [address] [place] [id number] [facility] [address] [place] [address] [facility] [address] [place] [facility] [address], [place] [facility] [address] [place] [address] [facility] Hospital[facility] [address], [place] [address] [facility] [address], [place] [address] 1. Take medication as prescribed. Encourage small but frequent sips of fluid to prevent dehydration. 2. Follow-up with her primary care provider and treatment facility as discussed. Return to the ED as needed and as discussed. Sepsis Event Note - Evaluation Sepsis Screening Result: No Definite Risk - Focused Exam Vital Signs: Vital Signs Temp Pulse Resp BP Pulse Ox 05/09/19 09:14 96.9 F 89 16 117/74 95 Date Exam was Performed: 05/09/19 Time Exam was Performed: 11:29 - My Orders Last 24 Hours: My Active Orders 05/09/19 10:04 UA RFX ALE AND CULT IF INDIC [URIN] Stat - Assessment/Plan Last 24 Hours: My Active Orders 05/09/19 10:04 UA RFX ALE AND CULT IF INDIC [URIN] Stat
[2019-05-09 10:41] LABS: BLOOD UREA NITROGEN,BUN 8 mg/dL (7.0-18.0); CHLORIDE,CL 104 mmol/L (98-107); GLUCOSE RANDOM 80 mg/dL (74-106); LIPASE 140 U/L (73-393); POTASSIUM,K 3.7 mmol/L (3.5-5.1); SODIUM,NA 144 mmol/L (136-148)
[2019-05-09 11:46] VITALS: BP 117/86; PULSE 70
== END 2019-05-09 11:46 | disposition home or self-care (01) ==
LOC: MW.ED 09:02
DX: F10.10 Alcohol abuse, uncomplicated (principal); R11.10 Vomiting, unspecified; F17.210 Nicotine dependence, cigarettes, uncomplicated
CPT/HCPCS: 36415; 80053; 83690; 85025; 96361; 96374; 96375; 99284; J1885; J2405; J7030; 99283

== ENCOUNTER 2019-05-10 08:20 | Emergency (ER) | payer BC ==
--- NOTE | 2019-05-10 09:10 | EDM.PDOC ---
ED HPI GENERAL MEDICAL PROBLEM - General Chief Complaint: Gastrointestinal Problem Stated Complaint: VOMITING Time Seen by Provider: 05/10/19 09:09 Source of Information: Reports: Patient History Limitations: Reports: No Limitations - History of Present Illness INITIAL COMMENTS - FREE TEXT/NARRATIVE: This 28 year old male is admitted to the ED with a chief complaint of abdominal pain especially when vomiting. He was in the ED yesterday morning with similar complaint. He has a history of alcohol abuse in that he drinks 1-2 pints of Vodka daily for the past two to three years. After leaving the ED yesterday morning, he treated himself to a pint of Vodka but did attend AA last night. He states that he has not had any thing to drink this morning and that he feels somewhat shaky. He is here for further evaluation. Onset: Gradual Severity: Mild (to moderate) Worsens with: Reports: Other (drink Vodka) - Related Data Allergies Allergy/AdvReac Type Severity Reaction Status Date / Time No Known Allergies Allergy Verified 05/10/19 08:30 Home Meds: Home Meds Ondansetron [Zofran ODT] 4 mg PO Q6H PRN #8 tab.dis 05/09/19 [Rx] LORazepam [Ativan] 0.5 mg PO Q8HR PRN 4 Days #12 tablet 05/10/19 [Rx] Ondansetron HCl [Zofran] 4 mg PO Q8HR PRN 4 Days #12 tablet 05/10/19 [Rx] Past Medical History - Past Health History Medical/Surgical History: Denies Medical/Surgical History HEENT History: Reports: None Gastrointestinal History: Reports: GERD Musculoskeletal History: Reports: None Psychiatric History: Reports: Addiction, Anxiety Other Psychiatric History: etoh abuse - Infectious Disease History Infectious Disease History: Reports: None - Past Surgical History HEENT Surgical History: Reports: Adenoidectomy, Oral Surgery, Tonsillectomy Musculoskeletal Surgical History: Reports: ORIF Social & Family History - Family History Family Medical History: Noncontributory - Tobacco Use Smoking Status *Q: Never Smoker - Caffeine Use Caffeine Use: Reports: Coffee Caffeine Use Comment: 1 cup a week - Recreational Drug Use Recreational Drug Use: No - Living Situation & Occupation Living situation: Reports: Single, with Significant Other (Girlfriend), with Family (2 kids) Occupation: Employed ED ROS GENERAL - Review of Systems Review Of Systems: See Below Constitutional: Reports: No Symptoms HEENT: Reports: No Symptoms Respiratory: Reports: No Symptoms Cardiovascular: Reports: No Symptoms Endocrine: Reports: No Symptoms GI/Abdominal: Reports: Abdominal Pain, Vomiting : Reports: No Symptoms Musculoskeletal: Reports: No Symptoms Skin: Reports: No Symptoms Neurological: Reports: No Symptoms Psychiatric: Reports: No Symptoms ED EXAM, GI/ABD - Physical Exam Exam: See Below Exam Limited By: No Limitations General Appearance: Alert, WD/WN, No Apparent Distress, Other (slightly anxious) Eyes: Bilateral: Normal Appearance, EOMI Ears: Normal External Exam, Normal Canal, Hearing Grossly Normal, Normal TMs Nose: Normal Inspection, Normal Mucosa, No Blood Throat/Mouth: Normal Inspection, Normal Lips, Normal Teeth, Normal Gums, Normal Oropharynx, Normal Voice, No Airway Compromise Head: Atraumatic, Normocephalic Neck: Normal Inspection, Supple, Non-Tender, Full Range of Motion Respiratory/Chest: No Respiratory Distress, Lungs Clear, Normal Breath Sounds, No Accessory Muscle Use, Chest Non-Tender Cardiovascular: Normal Peripheral Pulses, Regular Rate, Rhythm, No Edema, No Gallop, No JVD, No Murmur, No Rub GI/Abdominal Exam: Normal Bowel Sounds, Soft, Non-Tender, No Organomegaly, No Distention, No Abnormal Bruit, No Mass (Male) Exam: Deferred Rectal (Males) Exam: Deferred Back Exam: Normal Inspection, Full Range of Motion. No: CVA Tenderness (L), CVA Tenderness (R) Extremities: Normal Inspection, Normal Range of Motion, Non-Tender, Normal Capillary Refill, No Pedal Edema Neurological: Alert, Oriented, CN II-XII Intact, Normal Cognition, Normal Gait, Normal Reflexes, No Motor/Sensory Deficits Psychiatric: Normal Affect, Anxious Skin Exam: Warm, Dry, Intact, Normal Color, No Rash Lymphatic: No Adenopathy Course - Vital Signs Text/Narrative:: I discussed with the patient all of his diagnostic test including his CT of the abdomen and pelvis. He will be discharge. The patient agrees with the discharge plan. Last Recorded V/S: Last Vital Signs Temp 99.0 F 05/10/19 12:46 Pulse 72 05/10/19 12:46 Resp 18 05/10/19 12:46 BP 119/73 05/10/19 12:51 Pulse Ox 98 05/10/19 12:46 - Orders/Labs/Meds Orders: Active Orders 24 hr Category Date Time Status CULTURE URINE [RM] Stat Lab 05/10/19 11:45 Received Sodium Chloride 0.9% [Normal Saline] 1,000 ml Med 05/10/19 09:30 Active IV ASDIRECTED Sodium Chloride 0.9% [Normal Saline] 1,000 ml Med 05/10/19 10:45 Active IV ASDIRECTED Medication Orders Sodium Chloride (Normal Saline) 1,000 mls @ 1,000 mls/hr IV ASDIRECTED ANA Last Admin: 05/10/19 10:47 Dose: 1,000 mls/hr Infusion: 05/10/19 10:39 Dose: 1,000 mls/hr Admin: 05/10/19 09:39 Dose: 1,000 mls/hr Sodium Chloride (Normal Saline) 1,000 mls @ 999 mls/hr IV ASDIRECTED ANA Labs: Laboratory Tests 05/10/19 05/10/19 05/10/19 Range/Units 09:33 09:33 11:45 WBC 5.98 (4.0-11.0) K/uL RBC 4.68 (4.50-5.90) M/uL Hgb 15.7 (13.0-17.0) g/dL Hct 45.6 (38.0-50.0) % MCV 97.4 (80.0-98.0) fL MCH 33.5 H (27.0-32.0) pg MCHC 34.4 (31.0-37.0) g/dL RDW Std Deviation 50.6 (28.0-62.0) fl RDW Coeff of Raz 14 (11.0-15.0) % Plt Count 267 (150-400) K/uL MPV 10.20 (7.40-12.00) fL Neut % (Auto) 68.9 (48.0-80.0) % Lymph % (Auto) 22.1 (16.0-40.0) % [place] % (Auto) 7.5 (0.0-15.0) % Eos % (Auto) 1.3 (0.0-7.0) % Baso % (Auto) 0.2 (0.0-1.5) % Neut # (Auto) 4.1 (1.4-5.7) K/uL Lymph # (Auto) 1.3 (0.6-2.4) K/uL [place] # (Auto) 0.5 (0.0-0.8) K/uL Eos # (Auto) 0.1 (0.0-0.7) K/uL Baso # (Auto) 0.0 (0.0-0.1) K/uL Nucleated RBC % 0.0 /100WBC Nucleated RBCs # 0 K/uL Sodium 142 (136-148) mmol/L Potassium 3.9 (3.5-5.1) mmol/L Chloride 104 (98-107) mmol/L Carbon Dioxide 27.4 (21.0-32.0) mmol/L BUN 8 (7.0-18.0) mg/dL Creatinine 0.9 (0.8-1.3) mg/dL Est Cr Clr Drug Dosing 131.73 mL/min Estimated GFR (MDRD) > 60.0 ml/min Glucose 83 (74-106) mg/dL Calcium 9.1 (8.5-10.1) mg/dL Total Bilirubin 1.2 H (0.2-1.0) mg/dL AST 51 H (15-37) IU/L ALT 62 (14-63) IU/L Alkaline Phosphatase 77 (46-116) U/L Total Protein 7.3 (6.4-8.2) g/dL Albumin 4.0 (3.4-5.0) g/dL Globulin 3.3 (2.6-4.0) g/dL Albumin/Globulin Ratio 1.2 (0.9-1.6) Lipase 161 (73-393) U/L Urine Color YELLOW Urine Appearance CLEAR Urine pH 7.5 (5.0-8.0) Ur Specific [place] 1.015 (1.001-1.035) Urine Protein NEGATIVE (NEGATIVE) mg/dL Urine Glucose (UA) NEGATIVE (NEGATIVE) mg/dL Urine Ketones NEGATIVE (NEGATIVE) mg/dL Urine Occult Blood NEGATIVE (NEGATIVE) Urine Nitrite POSITIVE H (NEGATIVE) Urine Bilirubin NEGATIVE (NEGATIVE) Urine Urobilinogen 0.2 (<2.0) EU/dL Ur Leukocyte Esterase NEGATIVE (NEGATIVE) Urine RBC 0-3 (0-2/HPF) Urine WBC 0-3 (0-5/HPF) Ur Epithelial Cells RARE (NONE-FEW) Urine Bacteria FEW (NEGATIVE) Meds: Medications Generic Name Dose Route Start Last Admin Trade Name Freq PRN Reason Stop Dose Admin Sodium Chloride 1,000 mls @ 1,000 mls/hr 05/10/19 09:30 05/10/19 10:47 Normal Saline IV 1,000 mls/hr ASDIRECTED ANA Administration Sodium Chloride 1,000 mls @ 999 mls/hr 05/10/19 10:45 Normal Saline IV ASDIRECTED ANA Discontinued Medications Generic Name Dose Route Start Last Admin Trade Name Freq PRN Reason Stop Dose Admin Iopamidol 100 ml 05/10/19 10:46 05/10/19 10:47 Isovue Multipack-370 (76%) IVPUSH 05/10/19 10:47 100 ml ONETIME STA Administration Lorazepam 1 mg 05/10/19 09:29 05/10/19 09:39 Ativan IVPUSH 05/10/19 09:30 1 mg ONETIME ONE Administration Departure - Departure Time of Disposition: 13:05 Disposition: Home, Self-Care 01 Condition: Good Clinical Impression: Alcohol abuse, Nonspecific abdominal pain - Discharge Information *PRESCRIPTION DRUG MONITORING PROGRAM REVIEWED*: Yes *COPY OF PRESCRIPTION DRUG MONITORING REPORT IN PATIENT PAULO: Yes Instructions: Alcohol Use Disorder, Alcohol Abuse and Nutrition Referrals: PCP,None [Primary Care Provider] - Forms: ED Department Discharge Additional Instructions: Take all medications as directed. Follow up with your PCP in the next two to four days. Stop drink alcohol its killing you. Drink plenty of clear liquids for the next 24-48 hours. Rest for the next 24 hours. Return to the ED if your condition gets worse or should you have any questions or concerns. The following information is given to patients seen in the emergency department who are being discharged to home. This information is to outline your options for follow-up care. We provide all patients seen in our emergency department with a follow-up referral. The need for follow-up, as well as the timing and circumstances, are variable depending upon the specifics of your emergency department visit. If you don't have a primary care physician on staff, we will provide you with a referral. We always advise you to contact your personal physician following an emergency department visit to inform them of the circumstance of the visit and for follow-up with them and/or the need for any referrals to a consulting specialist. The emergency department will also refer you to a specialist when appropriate. This referral assures that you have the opportunity for follow-up care with a specialist. All of these measure are taken in an effort to provide you with optimal care, which includes your follow-up. Under all circumstances we always encourage you to contact your private physician who remains a resource for coordinating your care. When calling for follow-up care, please make the office aware that this follow-up is from your recent emergency room visit. If for any reason you are refused follow-up, please contact the [facility] Emergency Department at and asked to speak to the emergency department charge nurse. Sepsis Event Note - Evaluation Sepsis Screening Result: No Definite Risk - Focused Exam Vital Signs: Vital Signs Temp Pulse Resp BP Pulse Ox 05/10/19 12:51 119/73 05/10/19 12:46 99.0 F 72 18 99/61 98 05/10/19 10:18 98.5 F 74 16 115/73 100 05/10/19 08:30 98.3 F 86 18 118/70 99 Date Exam was Performed: 05/10/19 Time Exam was Performed: 13:04 - My Orders Last 24 Hours: My Active Orders 05/10/19 09:30 Sodium Chloride 0.9% [Normal Saline] 1,000 ml IV ASDIRECTED 05/10/19 10:45 Sodium Chloride 0.9% [Normal Saline] 1,000 ml IV ASDIRECTED 05/10/19 11:45 CULTURE URINE [RM] Stat - Assessment/Plan Last 24 Hours: My Active Orders 05/10/19 09:30 Sodium Chloride 0.9% [Normal Saline] 1,000 ml IV ASDIRECTED 05/10/19 10:45 Sodium Chloride 0.9% [Normal Saline] 1,000 ml IV ASDIRECTED 05/10/19 11:45 CULTURE URINE [RM] Stat
[2019-05-10] MEDS ORDERED: LORazepam 2 MG/ML SDV IVPUSH ONE (09:29)
[2019-05-10] MEDS: Sodium Chloride 0.9% 1,000 ML IV SCH ×2 (09:39→10:47)
[2019-05-10 10:17] LABS: BLOOD UREA NITROGEN,BUN 8 mg/dL (7.0-18.0); CARBON DIOXIDE,CO2 27.4 mmol/L (21.0-32.0); CHLORIDE,CL 104 mmol/L (98-107); GLUCOSE RANDOM 83 mg/dL (74-106); LIPASE 161 U/L (73-393); POTASSIUM,K 3.9 mmol/L (3.5-5.1); SODIUM,NA 142 mmol/L (136-148)
[2019-05-10] MEDS ORDERED: Sodium Chloride 0.9% 1,000 ML IV SCH (10:45)
[2019-05-10] MEDS ORDERED: Iopamidol 755 MG/ML 500 ML Multipack Bottle IVPUSH STA (10:46)
--- NOTE | 2019-05-10 11:10 | CT ---
CT abdomen and pelvis Technique: Multiple axial sections were obtained from above the dome of the diaphragm inferiorly through the pubic symphysis. Intravenous contrast was utilized. No oral contrast has been given. Comparison: No prior abdominal imaging is available. Findings: Visualized lung bases show nothing acute. Liver shows fatty infiltration. Low density is noted next to the ligamentum teres fissure most likely due to normal fat in this area. Liver shows no additional abnormality. Spleen is normal. Adrenal glands show no nodule. Gallbladder contains no calcified gallstones. Kidneys show symmetric contrast enhancement without hydronephrosis or mass. Pancreas is within normal limits. Aorta shows no aneurysm. No retroperitoneal adenopathy or mesenteric abnormalities are seen. Small fat-containing umbilical hernia is noted. Appendix is seen which is normal in size. No pelvic mass or adenopathy is seen. No free fluid or inflammatory change is appreciated. Bone window settings were reviewed which shows bilateral spondylolytic defects at L5-S1. No acute osseous finding is appreciated. Impression: 1. Fatty infiltration within the liver. 2. 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 3. Nothing acute is appreciated on CT study of the abdomen and pelvis. Diagnostic code #2 This report was dictated in [place] Standard Time
[2019-05-10 13:18] VITALS: BP 122/79; PULSE 74
== END 2019-05-10 13:19 | disposition home or self-care (01) ==
LOC: MW.ED 08:20
DX: R10.9 Unspecified abdominal pain (principal); F10.10 Alcohol abuse, uncomplicated
CPT/HCPCS: 36415; 74177; 80053; 81001; 83690; 85025; 87086; 96361; 96374; 99284; J2060; J7030; Q9967; 99283

== ENCOUNTER 2019-05-13 19:25 | Emergency (ER) | payer BC ==
[2019-05-13] MEDS ORDERED: Sodium Chloride 0.9% 1,000 ML IV ONE (19:44)
[2019-05-13] MEDS ORDERED: Thiamine 100 MG in Sodium Chloride 0.9% 100 ML IV ONE (19:44)
[2019-05-13] MEDS ORDERED: Alum Hydrox/Mag Hydrox/Simeth 15 ML, Lidocaine 2% 5 ML PO ONE ×2 (19:44)
[2019-05-13] MEDS ORDERED: Ondansetron 4 MG/2 ML SDV IVPUSH ONE (19:44)
--- NOTE | 2019-05-13 19:56 | EDM.PDOC ---
ED HPI GENERAL MEDICAL PROBLEM - General Chief Complaint: Gastrointestinal Problem Stated Complaint: VOMITTING Time Seen by Provider: 05/13/19 19:31 Source of Information: Reports: Patient History Limitations: Reports: No Limitations - History of Present Illness INITIAL COMMENTS - FREE TEXT/NARRATIVE: [place] HPI: This is a 28-year-old male that was here 5 days ago for similar complaints. Patient is an alcoholic and had quit drinking from February up until approximately 2 weeks ago. He is having marital difficulties which is prompted him to feel anxious and start drinking. Patient reports that when he drinks alcohol he starts vomiting. Patient said that he drank alcohol this morning and has vomited approximately 10 times. He has a picture on his cell phone showing some emesis with specks of blood in it the blood is bright red. Patient denies any melena or abdominal pain lightheadedness or fever. No recent sick contacts tainted food foreign travel or antibiotic use no diarrhea PMHX/PSHX: Alcoholism Social History: Positive for tobacco, positive for alcohol, positive for marijuana negative for other illicit drugs. Family history: Hypertension ROS: see chart PE: VS afebrile vital signs stable General: No apparent distress Head: Atraumatic normocephalic no lumps bumps or bruises Eyes: EOMI PERRLA Ears: TMs intact no hemotympanum no signs of infection no mastoid tenderness Nose: No epistaxis nares patent no septal wall hematoma Throat: No pharyngeal erythema or exudate no tonsillar enlargement Neck: Supple, no cervical lymphadenopathy Chest wall: No point tenderness Heart: Regular rate and rhythm without murmur gallop or rub Lungs: Clear to auscultation and percussion without rales rhonchi or wheeze Abdomen: Soft nontender nondistended without guarding rigidity or rebound Neck: No spinal point tenderness full range of motion in all 6 directions Back: No spinal paraspinal or CVA tenderness Extremities: full rom through out. no effusions skin: Warm dry intact no rashes neurologic: cranial nerves II through XII intact. No focal motor or sensory deficits noted MDM: Differential diagnosis: Bowel obstruction electrolyte abnormality gastritis. Alcohol induced emesis ED course: The patient was here a few days ago and is still drinking and taking Ativan. He is asking for Ativan here today but is showing no signs of alcohol withdrawal. I am reluctant to provide him with Ativan at this time either prescription form or here in the department. Instead I am going to focus on his stated complaint of emesis. Patient has been in treatment for alcohol and has outpatient referrals. Do not think it safe to send him home with Ativan when he is currently drinking. No withdrawal here patient's serum alcohol over 120. Patient's been given IV fluids and antiemetics and is tolerating p.o.'s. Patient to follow-up with his physician tomorrow. His work-up here today shows no abnormalities other than an elevated alcohol and slightly elevated liver enzymes at his baseline. Patient offered inpatient rehab for his alcohol abuse but he already has outpatient physician helping him. He will speak to the physician in the morning. He does not appear to be overtly withdrawing his serum alcohol is over 100 he has a sober ride home. He has tolerated p.o.'s here. Abdomen is been benign throughout Diagnosis: Vomiting Disposition: Home Chest Pain Score (Numeric/FACES): 8 - Related Data Allergies Allergy/AdvReac Type Severity Reaction Status Date / Time No Known Allergies Allergy Verified 05/13/19 19:29 Home Meds: Home Meds Ondansetron [Zofran ODT] 4 mg PO Q6H PRN #8 tab.dis 05/09/19 [Rx] LORazepam [Ativan] 0.5 mg PO Q8HR PRN 4 Days #12 tablet 05/10/19 [Rx] Ondansetron [Zofran ODT] 4 mg PO Q6H PRN #10 tab.dis 05/13/19 [Rx] Past Medical History - Past Health History Medical/Surgical History: Denies Medical/Surgical History HEENT History: Reports: None Gastrointestinal History: Reports: GERD Musculoskeletal History: Reports: None Psychiatric History: Reports: Addiction, Anxiety Other Psychiatric History: etoh abuse - Infectious Disease History Infectious Disease History: Reports: Chicken Pox - Past Surgical History HEENT Surgical History: Reports: Adenoidectomy, Oral Surgery, Tonsillectomy Musculoskeletal Surgical History: Reports: ORIF Social & Family History - Family History Family Medical History: Noncontributory - Caffeine Use Caffeine Use: Reports: Tea Caffeine Use Comment: 1 cup a week - Recreational Drug Use Recreational Drug Use: No - Living Situation & Occupation Living situation: Reports: Single, with Significant Other (Girlfriend), with Family (2 kids) Occupation: Employed [facility] [employer] - Review of Systems Review Of Systems: Comprehensive ROS is negative, except as noted in HPI. ED EXAM, GI/ABD - Physical Exam Exam: See Below Text/Narrative:: See my H&P Exam Limited By: No Limitations Course - Vital Signs Last Recorded V/S: Last Vital Signs Temp 36.3 C 05/13/19 19:30 Pulse 98 05/13/19 21:19 Resp 16 05/13/19 21:19 BP 109/67 05/13/19 21:19 Pulse Ox 97 05/13/19 21:19 - Orders/Labs/Meds Labs: Laboratory Tests 05/13/19 05/13/19 Range/Units 19:45 19:45 WBC 9.95 (4.0-11.0) K/uL RBC 4.95 (4.50-5.90) M/uL Hgb 16.6 (13.0-17.0) g/dL Hct 48.3 (38.0-50.0) % MCV 97.6 (80.0-98.0) fL MCH 33.5 H (27.0-32.0) pg MCHC 34.4 (31.0-37.0) g/dL RDW Std Deviation 50.6 (28.0-62.0) fl RDW Coeff of Raz 14 (11.0-15.0) % Plt Count 247 (150-400) K/uL MPV 10.20 (7.40-12.00) fL Neut % (Auto) 83.6 H (48.0-80.0) % Lymph % (Auto) 11.9 L (16.0-40.0) % [place] % (Auto) 3.8 (0.0-15.0) % Eos % (Auto) 0.5 (0.0-7.0) % Baso % (Auto) 0.2 (0.0-1.5) % Neut # (Auto) 8.3 H (1.4-5.7) K/uL Lymph # (Auto) 1.2 (0.6-2.4) K/uL [place] # (Auto) 0.4 (0.0-0.8) K/uL Eos # (Auto) 0.1 (0.0-0.7) K/uL Baso # (Auto) 0.0 (0.0-0.1) K/uL Nucleated RBC % 0.0 /100WBC Nucleated RBCs # 0 K/uL Sodium 145 (136-148) mmol/L Potassium 3.6 (3.5-5.1) mmol/L Chloride 104 (98-107) mmol/L Carbon Dioxide 29.2 (21.0-32.0) mmol/L BUN 8 (7.0-18.0) mg/dL Creatinine 1.0 (0.8-1.3) mg/dL Est Cr Clr Drug Dosing 122.07 mL/min Estimated GFR (MDRD) > 60.0 ml/min Glucose 79 (74-106) mg/dL Calcium 9.0 (8.5-10.1) mg/dL Magnesium 1.9 (1.8-2.4) mg/dL Total Bilirubin 0.5 (0.2-1.0) mg/dL AST 93 H (15-37) IU/L ALT 116 H (14-63) IU/L Alkaline Phosphatase 90 (46-116) U/L Total Protein 7.5 (6.4-8.2) g/dL Albumin 4.2 (3.4-5.0) g/dL Globulin 3.3 (2.6-4.0) g/dL Albumin/Globulin Ratio 1.3 (0.9-1.6) Lipase 119 (73-393) U/L Ethyl Alcohol 138 mg/dL Meds: Medications Discontinued Medications Generic Name Dose Route Start Last Admin Trade Name Freq PRN Reason Stop Dose Admin Al Hydroxide/Mg Hydroxide 15 0 ml 05/13/19 19:44 05/13/19 20:28 ml/ Lidocaine HCl 5 ml PO 05/13/19 19:45 Not Given ONETIME ONE Famotidine 40 mg 05/13/19 20:28 05/13/19 21:18 Pepcid IVPUSH 05/13/19 20:29 40 mg ONETIME ONE Administration Sodium Chloride 1,000 mls @ 1,000 mls/hr 05/13/19 19:44 05/13/19 20:04 Normal Saline IV 05/13/19 20:43 1,000 mls/hr .Bolus ONE Administration Thiamine HCl 100 mg/ Sodium 101 mls @ 202 mls/hr 05/13/19 19:44 05/13/19 20: 20 Chloride IV 05/13/19 19:45 202 mls/hr ONETIME ONE Administration Magnesium Hydroxide Confirm 05/13/19 20:07 05/13/19 20:17 Milk Of Magnesia Administered 05/13/19 20:08 Not Given Dose 30 ml .ROUTE .STK-MED ONE Ondansetron HCl 4 mg 05/13/19 19:44 05/13/19 20:04 Zofran IVPUSH 05/13/19 19:45 4 mg ONETIME ONE Administration Departure - Departure Time of Disposition: 22:01 Disposition: Home, Self-Care 01 Clinical Impression: Vomiting - Discharge Information Prescriptions: Ondansetron [Zofran ODT] 4 mg PO Q6H PRN #10 tab.dis PRN Reason: Nausea Instructions: Nausea, Adult, [id number] Referrals: PCP,None [Primary Care Provider] - Forms: ED Department Discharge Additional Instructions: The following information is given to patients seen in the emergency department who are being discharged to home. This information is to outline your options for follow-up care. We provide all patients seen in our emergency department with a follow-up referral. The need for follow-up, as well as the timing and circumstances, are variable depending upon the specifics of your emergency department visit. If you don't have a primary care physician on staff, we will provide you with a referral. We always advise you to contact your personal physician following an emergency department visit to inform them of the circumstance of the visit and for follow-up with them and/or the need for any referrals to a consulting specialist. The emergency department will also refer you to a specialist when appropriate. This referral assures that you have the opportunity for follow-up care with a specialist. All of these measure are taken in an effort to provide you with optimal care, which includes your follow-up. Under all circumstances we always encourage you to contact your private physician who remains a resource for coordinating your care. When calling for follow-up care, please make the office aware that this follow-up is from your recent emergency room visit. If for any reason you are refused follow-up, please contact the [facility] Emergency Department at and asked to speak to the emergency department charge nurse. Sepsis Event Note - Evaluation Sepsis Screening Result: No Definite Risk - Focused Exam Vital Signs: Vital Signs Temp Pulse Resp BP Pulse Ox 05/13/19 21:19 98 16 109/67 97 05/13/19 19:30 36.3 C 97 18 133/82 97 Date Exam was Performed: 05/13/19 Time Exam was Performed: 21:58
[2019-05-13] MEDS ORDERED: Magnesium Hydroxide 400 MG/5 ML Susp 30 ML Cup ONE (20:07)
[2019-05-13 20:28] LABS: BLOOD UREA NITROGEN,BUN 8 mg/dL (7.0-18.0); CARBON DIOXIDE,CO2 29.2 mmol/L (21.0-32.0); CHLORIDE,CL 104 mmol/L (98-107); GLUCOSE RANDOM 79 mg/dL (74-106); LIPASE 119 U/L (73-393); POTASSIUM,K 3.6 mmol/L (3.5-5.1); SODIUM,NA 145 mmol/L (136-148)
[2019-05-13] MEDS ORDERED: Famotidine 20 MG/2 ML SDV IVPUSH ONE (20:28)
[2019-05-13 22:11] VITALS: BP 113/70; PULSE 94
== END 2019-05-13 22:05 | disposition home or self-care (01) ==
LOC: MW.ED 19:25
DX: R11.10 Vomiting, unspecified (principal); F17.200 Nicotine dependence, unspecified, uncomplicated
CPT/HCPCS: 36415; 80053; 80307; 83690; 83735; 85025; 93005; 96365; 96375; 99285; J2405; J3411; J7030; J7050; S0028; J3490

== ENCOUNTER 2020-03-19 06:50 | Emergency (ER) | payer SELFPAY ==
[2020-03-19] MEDS ORDERED: Ketorolac 15 MG/ML SDV IVPUSH ONE (07:11)
[2020-03-19] MEDS ORDERED: Sodium Chloride 0.9% 1,000 ML IV ONE (07:11)
[2020-03-19] MEDS ORDERED: Ondansetron 4 MG/2 ML SDV IVPUSH ONE (07:11)
[2020-03-19] MEDS ORDERED: chlordiazePOXIDE 25 MG Cap PO ONE (07:18)
--- NOTE | 2020-03-19 07:18 | EDM.PDOC ---
ED HPI GENERAL MEDICAL PROBLEM - General Chief Complaint: General Stated Complaint: DETOXING FROM ALCOHOL Time Seen by Provider: 03/19/20 07:07 Source of Information: Reports: Patient History Limitations: Reports: No Limitations - History of Present Illness INITIAL COMMENTS - FREE TEXT/NARRATIVE: Patient is a 29-year-old male with a history of EtOH abuse. Patient has been sober for 9 months of yesterday with friends during about a pint of vodka. Patient yesterday woke up with body aches and nausea. Patient also states he feels some shakiness as he had before the past with alcohol withdrawal. Patient denies any abdominal pain fevers chills cough or shortness of breath. Generalized Pain Score (Numeric/FACES): 5 - Related Data Allergies Allergy/AdvReac Type Severity Reaction Status Date / Time No Known Allergies Allergy Verified 03/19/20 06:59 Home Meds: Home Meds . [No Known Home Meds] 03/19/20 [History] Past Medical History - Past Health History Medical/Surgical History: Denies Medical/Surgical History HEENT History: Reports: None Gastrointestinal History: Reports: GERD Musculoskeletal History: Reports: None Psychiatric History: Reports: Addiction, Anxiety Other Psychiatric History: etoh abuse - Infectious Disease History Infectious Disease History: Reports: Chicken Pox - Past Surgical History HEENT Surgical History: Reports: Adenoidectomy, Oral Surgery, Tonsillectomy GI Surgical History: Reports: None Musculoskeletal Surgical History: Reports: ORIF Other Musculoskeletal Surgeries/Procedures:: right hand sx Social & Family History - Family History Family Medical History: No Pertinent Family History - Tobacco Use Tobacco Use Status *Q: Current Every Day Tobacco User Years of Tobacco use: 15 Packs/Tins Daily: 1 - Caffeine Use Caffeine Use: Reports: Coffee Caffeine Use Comment: 1 cup a week - Recreational Drug Use Recreational Drug Use: No - Living Situation & Occupation Living situation: Reports: Single, with Significant Other (Girlfriend), with Family (2 kids) Occupation: Employed ED ROS GENERAL - Review of Systems Review Of Systems: See Below Constitutional: Reports: Malaise HEENT: Reports: No Symptoms Respiratory: Reports: No Symptoms Cardiovascular: Reports: No Symptoms Endocrine: Reports: No Symptoms GI/Abdominal: Reports: Nausea : Reports: No Symptoms Musculoskeletal: Reports: No Symptoms Skin: Reports: No Symptoms Neurological: Reports: No Symptoms Psychiatric: Reports: No Symptoms Hematologic/Lymphatic: Reports: No Symptoms Immunologic: Reports: No Symptoms ED EXAM, GENERAL - Physical Exam Exam: See Below Exam Limited By: No Limitations General Appearance: Alert, WD/WN Eye Exam: Bilateral Eye: EOMI, PERRL Respiratory/Chest: No Respiratory Distress, Lungs Clear Cardiovascular: Regular Rate, Rhythm GI/Abdominal: Normal Bowel Sounds, Soft, Non-Tender Neurological: Alert, Oriented Course - Vital Signs Last Recorded V/S: Last Vital Signs Temp 97.2 F 03/19/20 07:00 Pulse 82 03/19/20 08:13 Resp 16 03/19/20 08:13 BP 96/64 03/19/20 08:13 Pulse Ox 98 03/19/20 08:13 - Orders/Labs/Meds Labs: Laboratory Tests 03/19/20 03/19/20 Range/Units 06:59 06:59 WBC 8.93 (4.0-11.0) K/uL RBC 5.13 (4.50-5.90) M/uL Hgb 16.9 (13.0-17.0) g/dL Hct 47.9 (38.0-50.0) % MCV 93.4 (80.0-98.0) fL MCH 32.9 H (27.0-32.0) pg MCHC 35.3 (31.0-37.0) g/dL RDW Std Deviation 44.1 (28.0-62.0) fl RDW Coeff of Raz 13 (11.0-15.0) % Plt Count 296 (150-400) K/uL MPV 10.80 (7.40-12.00) fL Neut % (Auto) 63.0 (48.0-80.0) % Lymph % (Auto) 26.8 (16.0-40.0) % [place] % (Auto) 7.2 (0.0-15.0) % Eos % (Auto) 2.7 (0.0-7.0) % Baso % (Auto) 0.3 (0.0-1.5) % Neut # (Auto) 5.6 (1.4-5.7) K/uL Lymph # (Auto) 2.4 (0.6-2.4) K/uL [place] # (Auto) 0.6 (0.0-0.8) K/uL Eos # (Auto) 0.2 (0.0-0.7) K/uL Baso # (Auto) 0.0 (0.0-0.1) K/uL Nucleated RBC % 0.0 /100WBC Nucleated RBCs # 0 K/uL Sodium 143 (136-148) mmol/L Potassium 3.8 (3.5-5.1) mmol/L Chloride 106 (98-107) mmol/L Carbon Dioxide 25.1 (21.0-32.0) mmol/L BUN 12 (7.0-18.0) mg/dL Creatinine 1.3 (0.8-1.3) mg/dL Est Cr Clr Drug Dosing 93.05 mL/min Estimated GFR (MDRD) > 60.0 ml/min Glucose 95 (74-106) mg/dL Calcium 9.5 (8.5-10.1) mg/dL Total Bilirubin 0.3 (0.2-1.0) mg/dL AST 30 (15-37) IU/L ALT 40 (14-63) IU/L Alkaline Phosphatase 76 (46-116) U/L Total Protein 8.4 H (6.4-8.2) g/dL Albumin 4.6 (3.4-5.0) g/dL Globulin 3.8 (2.6-4.0) g/dL Albumin/Globulin Ratio 1.2 (0.9-1.6) Ethyl Alcohol 13 mg/dL Meds: Medications Discontinued Medications Generic Name Dose Route Start Last Admin Trade Name Freq PRN Reason Stop Dose Admin Chlordiazepoxide HCl 25 mg 03/19/20 07:18 03/19/20 07:23 Librium PO 03/19/20 07:19 25 mg ONETIME ONE Administration Sodium Chloride 1,000 mls @ 999 mls/hr 03/19/20 07:11 03/19/20 07:23 Normal Saline IV 03/19/20 08:11 999 mls/hr .BOLUS ONE Administration Ketorolac Tromethamine 15 mg 03/19/20 07:11 03/19/20 07:23 Toradol IVPUSH 03/19/20 07:12 15 mg ONETIME ONE Administration Ondansetron HCl 4 mg 03/19/20 07:11 01/06/21 07:23 Zofran IVPUSH 03/19/20 07:12 4 mg ONETIME ONE Administration - Re-Assessments/Exams Free Text/Narrative Re-Assessment/Exam: 03/19/20 08:23 Patient is feeling better after the Zofran and IV fluids able to tolerate p.o. Patient has no signs of withdrawal on exam will be discharged home. Departure - Departure Time of Disposition: 08:23 Disposition: Home, Self-Care 01 Condition: Good Clinical Impression: Alcohol intoxication Qualifiers: Complication of substance-induced condition: uncomplicated Qualified Code(s): F10.920 - Alcohol use, unspecified with intoxication, uncomplicated - Discharge Information *PRESCRIPTION DRUG MONITORING PROGRAM REVIEWED*: Not Applicable *COPY OF PRESCRIPTION DRUG MONITORING REPORT IN PATIENT PAULO: Not Applicable Instructions: Binge-Drinking Information, Adult Referrals: PCP,None [Primary Care Provider] - Forms: ED Department Discharge Additional Instructions: The following information is given to patients seen in the emergency department who are being discharged to home. This information is to outline your options for follow-up care. We provide all patients seen in our emergency department with a follow-up referral. The need for follow-up, as well as the timing and circumstances, are variable depending upon the specifics of your emergency department visit. If you don't have a primary care physician on staff, we will provide you with a referral. We always advise you to contact your personal physician following an emergency department visit to inform them of the circumstance of the visit and for follow-up with them and/or the need for any referrals to a consulting specialist. The emergency department will also refer you to a specialist when appropriate. This referral assures that you have the opportunity for follow-up care with a specialist. All of these measure are taken in an effort to provide you with optimal care, which includes your follow-up. Under all circumstances we always encourage you to contact your private physician who remains a resource for coordinating your care. When calling for follow-up care, please make the office aware that this follow-up is from your recent emergency room visit. If for any reason you are refused follow-up, please contact the [facility] Emergency Department at and asked to speak to the emergency department charge nurse. Please follow up with your primary care physician. If you do not have a primary care physician, see below: [facility] [address] [place], [place] [id number] [facility] [address] [place] [address] Follow-up your primary care physician as needed. If you have any other complaints or concerns please return to the emergency department. Sepsis Event Note (ED) - Evaluation Sepsis Screening Result: No Definite Risk - Focused Exam Vital Signs: Vital Signs Temp Pulse Resp BP Pulse Ox 03/19/20 08:13 82 16 96/64 98 03/19/20 07:00 97.2 F 84 18 111/78 97 - Assessment/Plan Assessment:: Patient is a 29-year-old male with history of EtOH abuse who presents today for nausea vomiting and body aches after drinking a pint of vodka yesterday. Patient sober for 9 months unlikely to be in alcohol withdrawal. Will give IV fluids Zofran and Toradol and reassess.
[2020-03-19 08:03] LABS: BLOOD UREA NITROGEN,BUN 12 mg/dL (7.0-18.0); CARBON DIOXIDE,CO2 25.1 mmol/L (21.0-32.0); CHLORIDE,CL 106 mmol/L (98-107); GLUCOSE RANDOM 95 mg/dL (74-106); POTASSIUM,K 3.8 mmol/L (3.5-5.1); SODIUM,NA 143 mmol/L (136-148)
[2020-03-19 08:14] VITALS: BP 96/64; PULSE 82
== END 2020-03-19 08:32 | disposition home or self-care (01) ==
LOC: MW.ED 06:50
DX: F10.120 Alcohol abuse with intoxication, uncomplicated (principal); F17.210 Nicotine dependence, cigarettes, uncomplicated; Y90.0 Blood alcohol level of less than 20 mg/100 ml
CPT/HCPCS: 36415; 80053; 80179; 85025; 96374; 96375; 99284; A9270; J1885; J2405; J7030

== ENCOUNTER 2020-03-31 08:32 | Emergency (ER) | payer SELFPAY ==
--- NOTE | 2020-03-31 08:42 | EDM.PDOC ---
ED HPI GENERAL MEDICAL PROBLEM - General Chief Complaint: Gastrointestinal Problem Stated Complaint: NAUSEA/FEVER/VOMITTING Time Seen by Provider: 03/31/20 08:35 Source of Information: Reports: Patient History Limitations: Reports: No Limitations - History of Present Illness INITIAL COMMENTS - FREE TEXT/NARRATIVE: 29-year-old male with no past medical history presents with symptoms worrisome of Covid. He admits to fever, nausea, vomiting, diarrhea over the past 2 days, along with diffuse myalgia and generalized malaise. There are multiple sick contacts at home. He denies headache, chest pain, shortness of breath, abdominal pain. ROS: A 10-point review of systems, other than pertinent positives and negatives as stated per HPI, is otherwise negative Past medical history: No additional pertinent history Past Surgical history: No additional pertinent history Social history: No additional pertinent history Family history: No additional pertinent history PHYSICAL EXAM General: AOx4, GCS = 15, No distress HEENT: dry mucous membrane Neck: supple, no meningismus, no Kernig or Brudzinski Cardiac: S1S2 RRR Respiratory: CTAB, no crackles or rales, no wheezing Abdomen: Soft, nontender, no rebound or guarding, nondistended, no pulsatile mass. Back: nontender Musculoskeletal: NVI distally, no deformity Neuro: No focal deficits, CN 2 - 12 WNL. - Related Data Allergies Allergy/AdvReac Type Severity Reaction Status Date / Time No Known Allergies Allergy Verified 03/31/20 08:41 Home Meds: Home Meds Ondansetron [Zofran ODT] 4 mg PO Q6H PRN #12 tab.dis 03/31/20 [Rx] Past Medical History - Past Health History Medical/Surgical History: Denies Medical/Surgical History HEENT History: Reports: None Gastrointestinal History: Reports: GERD Musculoskeletal History: Reports: None Psychiatric History: Reports: Addiction, Anxiety Other Psychiatric History: etoh abuse - Infectious Disease History Infectious Disease History: Reports: Chicken Pox - Past Surgical History HEENT Surgical History: Reports: Adenoidectomy, Oral Surgery, Tonsillectomy GI Surgical History: Reports: None Musculoskeletal Surgical History: Reports: ORIF Other Musculoskeletal Surgeries/Procedures:: right hand sx Social & Family History - Family History Family Medical History: No Pertinent Family History - Caffeine Use Caffeine Use: Reports: Coffee Caffeine Use Comment: 1 cup a week - Living Situation & Occupation Living situation: Reports: Single, with Significant Other (Girlfriend), with Family (2 kids) Occupation: Employed ED ROS GENERAL - Review of Systems Review Of Systems: See Below (see dictation) ED EXAM, GENERAL - Physical Exam Exam: See Below (see dictation) Course - Vital Signs Last Recorded V/S: Last Vital Signs Temp 97.6 F 03/31/20 08:41 Pulse 69 03/31/20 09:43 Resp 18 03/31/20 09:43 BP 116/61 03/31/20 09:43 Pulse Ox 98 03/31/20 09:43 - Orders/Labs/Meds Orders: Active Orders 24 hr Category Date Time Status Cardiac Monitoring [RC] . DIRECTED Care 03/31/20 08:59 Active Sodium Chloride 0.9% [Saline Flush] Med 03/31/20 08:59 Active 10 ml FLUSH ASDIRECTED PRN Sodium Chloride 0.9% [Saline Flush] Med 03/31/20 08:59 Active 2.5 ml FLUSH ASDIRECTED PRN Saline Lock Insert [OM.PC] Stat Oth 03/31/20 08:59 Ordered Medication Orders Sodium Chloride (Saline Flush) 10 ml FLUSH ASDIRECTED PRN PRN Reason: Keep Vein Open Last Admin: 03/31/20 09:16 Dose: 10 ml Documented by: ANGELIC Sodium Chloride (Saline Flush) 2.5 ml FLUSH ASDIRECTED PRN PRN Reason: Keep Vein Open Last Admin: 03/31/20 09:16 Dose: 2.5 ml Documented by: ANGELIC Labs: Laboratory Tests 03/31/20 03/31/20 03/31/20 Range/Units 08:50 09:25 09:25 WBC 7.96 (4.0-11.0) K/uL RBC 4.74 (4.50-5.90) M/uL Hgb 15.4 (13.0-17.0) g/dL Hct 44.1 (38.0-50.0) % MCV 93.0 (80.0-98.0) fL MCH 32.5 H (27.0-32.0) pg MCHC 34.9 (31.0-37.0) g/dL RDW Std Deviation 43.7 (28.0-62.0) fl RDW Coeff of Raz 13 (11.0-15.0) % Plt Count 251 (150-400) K/uL MPV 10.50 (7.40-12.00) fL Neut % (Auto) 63.1 (48.0-80.0) % Lymph % (Auto) 27.1 (16.0-40.0) % [place] % (Auto) 7.2 (0.0-15.0) % Eos % (Auto) 2.3 (0.0-7.0) % Baso % (Auto) 0.3 (0.0-1.5) % Neut # (Auto) 5.0 (1.4-5.7) K/uL Lymph # (Auto) 2.2 (0.6-2.4) K/uL [place] # (Auto) 0.6 (0.0-0.8) K/uL Eos # (Auto) 0.2 (0.0-0.7) K/uL Baso # (Auto) 0.0 (0.0-0.1) K/uL Nucleated RBC % 0.0 /100WBC Nucleated RBCs # 0 K/uL Sodium 141 (136-148) mmol/L Potassium 3.9 (3.5-5.1) mmol/L Chloride 104 (98-107) mmol/L Carbon Dioxide 28.9 (21.0-32.0) mmol/L BUN 10 (7.0-18.0) mg/dL Creatinine 1.2 (0.8-1.3) mg/dL Est Cr Clr Drug Dosing 100.80 mL/min Estimated GFR (MDRD) > 60.0 ml/min Glucose 96 (74-106) mg/dL Calcium 9.4 (8.5-10.1) mg/dL Magnesium 2.0 (1.8-2.4) mg/dL Total Bilirubin 0.5 (0.2-1.0) mg/dL AST 16 (15-37) IU/L ALT 43 (14-63) IU/L Alkaline Phosphatase 68 (46-116) U/L Total Protein 7.4 (6.4-8.2) g/dL Albumin 3.9 (3.4-5.0) g/dL Globulin 3.5 (2.6-4.0) g/dL Albumin/Globulin Ratio 1.1 (0.9-1.6) Lipase 144 (73-393) U/L Influenza Type A RNA NEGATIVE (NEGATIVE) Influenza Type B RNA NEGATIVE (NEGATIVE) SARS-CoV-2 RNA (FRANSISCO) NEGATIVE (NEGATIVE) Meds: Medications Generic Name Dose Route Start Last Admin Trade Name Freq PRN Reason Stop Dose Admin Sodium Chloride 10 ml 03/31/20 08:59 03/31/20 09:16 Saline Flush FLUSH 10 ml ASDIRECTED PRN Administration Keep Vein Open Sodium Chloride 2.5 ml 03/31/20 08:59 03/31/20 09:16 Saline Flush FLUSH 2.5 ml ASDIRECTED PRN Administration Keep Vein Open Discontinued Medications Generic Name Dose Route Start Last Admin Trade Name Freq PRN Reason Stop Dose Admin Lactated Ringer's 1,000 mls @ 999 mls/hr 03/31/20 08:59 03/31/20 09:16 Ringers, Lactated IV 03/31/20 09:59 999 mls/hr .BOLUS ONE Administration Ondansetron HCl 4 mg 03/31/20 08:59 03/31/20 09:16 Zofran IVPUSH 03/31/20 09:00 4 mg ONETIME ONE Administration - Re-Assessments/Exams Free Text/Narrative Re-Assessment/Exam: 03/31/20 1030 After IV fluids and Zofran, he is currently stable for discharge. I performed a repeat exam and did not appreciate new abnormal findings. Patient exhibits normal vital signs and has a normal gait on road test. I advised the patient to return to the ER for reevaluation if symptoms worsened, including fever, worsening pain, or any other worrisome symptoms. I instructed the patient to follow up with their PCP within 2-3 days. MEDICAL DECISION MAKING: I reviewed the patients past medical records, lab and radiographic findings. I discussed the case with the patient. My differential diagnosis included: Viral gastroenteritis, Covid, viral syndrome. Patient was tested negative for influenza and Covid. Electrolytes were unremarkable, no leukocytosis or tachycardia or fever to suggest for infectious etiology. His abdomen is soft and nontender, I do not suspect surgical abdomen needing surgical consultation. Departure - Departure Time of Disposition: 10:26 Disposition: Home, Self-Care 01 Condition: Good Clinical Impression: Gastroenteritis - Discharge Information *PRESCRIPTION DRUG MONITORING PROGRAM REVIEWED*: Not Applicable *COPY OF PRESCRIPTION DRUG MONITORING REPORT IN PATIENT PAULO: Not Applicable Prescriptions: Ondansetron [Zofran ODT] 4 mg PO Q6H PRN #12 tab.dis PRN Reason: Vomiting Instructions: Viral Gastroenteritis, Adult, [id number], Dehydration, Adult, [id number] Referrals: PCP,None [Primary Care Provider] - Forms: ED Department Discharge Additional Instructions: The need for follow-up, as well as the timing and circumstances, are variable depending upon the specifics of your emergency department visit. If you don't have a primary care physician on staff, we will provide you with a referral. We always advise you to contact your personal physician following an emergency department visit to inform them of the circumstance of the visit and for follow-up with them and/or the need for any referrals to a consulting specialist. The emergency department will also refer you to a specialist when appropriate. This referral assures that you have the opportunity for follow-up care with a specialist. All of these measure are taken in an effort to provide you with optimal care, which includes your follow-up. Under all circumstances we always encourage you to contact your private physician who remains a resource for coordinating your care. When calling for follow-up care, please make the office aware that this follow-up is from your recent emergency room visit. If for any reason you are refused follow-up, please contact the [facility] Emergency Department at and asked to speak to the emergency department charge nurse. If you do not have a primary care doctor, please follow up with the clinics below within 3-[address] [facility] - Primary Care [address] [place] [address] [facility] [address] [place] [address] Sepsis Event Note (ED) - Focused Exam Vital Signs: Vital Signs Temp Pulse Resp BP Pulse Ox 03/31/20 09:43 69 18 116/61 98 03/31/20 08:41 97.6 F 67 16 119/69 98 - My Orders Last 24 Hours: My Active Orders 03/31/20 08:59 Cardiac Monitoring [RC] . DIRECTED Sodium Chloride 0.9% [Saline Flush] 10 ml FLUSH ASDIRECTED PRN Sodium Chloride 0.9% [Saline Flush] 2.5 ml FLUSH ASDIRECTED PRN Saline Lock Insert [OM.PC] Stat - Assessment/Plan Last 24 Hours: My Active Orders 03/31/20 08:59 Cardiac Monitoring [RC] . DIRECTED Sodium Chloride 0.9% [Saline Flush] 10 ml FLUSH ASDIRECTED PRN Sodium Chloride 0.9% [Saline Flush] 2.5 ml FLUSH ASDIRECTED PRN Saline Lock Insert [OM.PC] Stat
[2020-03-31] MEDS ORDERED: Lactated Ringers 1,000 ML IV ONE (08:59)
[2020-03-31] MEDS ORDERED: Ondansetron 4 MG/2 ML SDV IVPUSH ONE (08:59)
[2020-03-31] MEDS ORDERED: Sodium Chloride 0.9% 2.5 ML Syringe FLUSH PRN (08:59)
[2020-03-31] MEDS ORDERED: Sodium Chloride 0.9% 10 ML Syringe FLUSH PRN (08:59)
[2020-03-31 09:40] LABS: CORONAVIRUS COVID-19 NAA NEGATIVE (NEGATIVE); INFLUENZA A NAA NEGATIVE (NEGATIVE); INFLUENZA B NAA NEGATIVE (NEGATIVE)
[2020-03-31 10:09] LABS: BLOOD UREA NITROGEN,BUN 10 mg/dL (7.0-18.0); CARBON DIOXIDE,CO2 28.9 mmol/L (21.0-32.0); CHLORIDE,CL 104 mmol/L (98-107); GLUCOSE RANDOM 96 mg/dL (74-106); LIPASE 144 U/L (73-393); POTASSIUM,K 3.9 mmol/L (3.5-5.1); SODIUM,NA 141 mmol/L (136-148)
[2020-03-31 11:36] VITALS: BP 112/66; PULSE 65
== END 2020-03-31 10:39 | disposition home or self-care (01) ==
LOC: MW.ED 08:32
DX: K52.9 Noninfective gastroenteritis and colitis, unspecified (principal); Z20.822 Contact with and (suspected) exposure to COVID-19
CPT/HCPCS: 0240U; 36415; 80053; 83690; 83735; 85025; 96374; 99284; J2405; J7120; 99283

== ENCOUNTER 2020-04-05 05:33 | Emergency (ER) | payer SELFPAY ==
[2020-04-05] MEDS ORDERED: LORazepam 2 MG/ML SDV IVPUSH ONE (05:49)
[2020-04-05] MEDS ORDERED: Sodium Chloride 0.9% 10 ML Syringe FLUSH PRN (05:49)
[2020-04-05] MEDS ORDERED: Sodium Chloride 0.9% 2.5 ML Syringe FLUSH PRN (05:49)
--- NOTE | 2020-04-05 05:52 | EDM.PDOC ---
<Miguel Angel Anguiano - Last Filed: 04/05/20 06:42> ED HPI GENERAL MEDICAL PROBLEM - General Chief Complaint: Gastrointestinal Problem Stated Complaint: VOMITING Time Seen by Provider: 04/05/20 05:36 - History of Present Illness INITIAL COMMENTS - FREE TEXT/NARRATIVE: 29-year-old male with history of alcohol abuse with frequent presentations for nausea and vomiting following alcohol consumption presents with nausea vomiting and p.o. intolerance. The patient had a significant amount of alcohol yesterday. He woke up about 2 and half hours ago with nausea and vomiting he took Zofran without relief he has mild epigastric pain associated with dry heaves no chest pain no shortness of breath no fevers no diarrhea. Pain is in the epigastrium does not radiate. Middle Abdomen Pain Score (Numeric/FACES): 5 - Related Data Allergies Allergy/AdvReac Type Severity Reaction Status Date / Time No Known Allergies Allergy Verified 04/05/20 05:45 Home Meds: Home Meds Ondansetron [Zofran ODT] 4 mg PO Q6H PRN #12 tab.dis 03/31/20 [Rx] Past Medical History - Past Health History Medical/Surgical History: Denies Medical/Surgical History HEENT History: Reports: None Gastrointestinal History: Reports: GERD Musculoskeletal History: Reports: None Psychiatric History: Reports: Addiction, Anxiety Other Psychiatric History: etoh abuse - Infectious Disease History Infectious Disease History: Reports: Chicken Pox - Past Surgical History HEENT Surgical History: Reports: Adenoidectomy, Oral Surgery, Tonsillectomy GI Surgical History: Reports: None Other GI Surgeries/Procedures: 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 Musculoskeletal Surgical History: Reports: ORIF Other Musculoskeletal Surgeries/Procedures:: right hand sx Social & Family History - Family History Family Medical History: No Pertinent Family History - Caffeine Use Caffeine Use: Reports: Coffee Caffeine Use Comment: 1 cup a week - Recreational Drug Use Recreational Drug Use: No - Living Situation & Occupation Living situation: Reports: Single, with Significant Other (Girlfriend), with Family (2 kids) Occupation: Employed ED ROS GENERAL - Review of Systems Review Of Systems: See Below Free Text/Narrative/Comment: General: No fever. Skin: No rash. Eyes: No vision problems. ENT: No sore throat. Neck: No neck stiffness. Respiratory: No shortness of breath. Cardiac: No chest pain. Gastrointestinal: Per HPI Urinary: No dysuria. Musculoskeletal: No myalgias/arthralgias. Neurologic: No headache. ED EXAM, GENERAL - Physical Exam Exam: See Below Free Text/Narrative:: General Appearance: No acute distress, appears comfortable Skin: No rash HEENT: Normocephalic/atraumatic, sclera anicteric, mucous membranes moist Neck: Normal range of motion Chest and Lungs: Bilateral breath sounds, clear to auscultation Cardiovascular: Regular rate and rhythm, no murmur Abdomen: Mild epigastric tenderness without guarding or rebound Back: Normal Musculoskeletal: No edema or tenderness Neurologic: Awake, alert, no obvious deficits, moving all extremities Psychiatric: Appropriate, cooperative Departure - Departure Disposition: Home, Self-Care 01 Clinical Impression: Alcohol intoxication Qualifiers: Complication of substance-induced condition: uncomplicated Qualified Code(s): F10.920 - Alcohol use, unspecified with intoxication, uncomplicated - Discharge Information Instructions: Binge-Drinking Information, Adult, Alcohol Intoxication, [id number] Referrals: PCP,None [Primary Care Provider] - Forms: ED Department Discharge Additional Instructions: You were evaluated today on an emergent basis. We do believe your symptoms are from alcohol intoxication. We realize that you have had an issue with alcoholism in the past and it appears that you have relapsed but are amenable to treatment again. I recommend contacting the rehabilitation center in [place] today's that she may begin detox. Please return to the emergency department if you have any new or worsening symptoms. [facility] - Primary Care [address] [place] [address] [place] [address] The patient is informed of any results of their evaluation and diagnostic workup and all questions are answered. They are given discharge instructions and return precautions. The patient is stable for discharge. The patient states they understand and agree with the plan and that they will return if their symptoms get worse or if they have any new concerns. The following information is given to patients seen in the emergency department who are being discharged to home. This information is to outline your options for follow-up care. We provide all patients seen in our emergency department with a follow-up referral. The need for follow-up, as well as the timing and circumstances, are variable depending upon the specifics of your emergency department visit. If you don't have a primary care physician on staff, we will provide you with a referral. We always advise you to contact your personal physician following an emergency department visit to inform them of the circumstance of the visit and for follow-up with them and/or the need for any referrals to a consulting specialist. The emergency department will also refer you to a specialist when appropriate. This referral assures that you have the opportunity for follow-up care with a specialist. All of these measure are taken in an effort to provide you with optimal care, which includes your follow-up. Under all circumstances we always encourage you to contact your private physician who remains a resource for coordinating your care. When calling for follow-up care, please make the office aware that this follow-up is from your recent emergency room visit. If for any reason you are refused follow-up, please contact the [facility] Emergency Department at and asked to speak to the emergency department charge nurse. Sepsis Event Note (ED) - Evaluation Sepsis Screening Result: No Definite Risk - Assessment/Plan Assessment:: 29-year-old male presenting with signs and symptoms most consistent with alcohol related nausea and vomiting. Pancreatitis is a consideration biliary pathology is a consideration less likely appendicitis or diverticulitis. No symptoms that would be concerning for ACS at this point. Patient has had good symptomatic response to fluids Zofran and Ativan in the past patient tried to take Zofran earlier without effect so will provide LR and Ativan for now labs to assess for any signs of pancreatitis or other acute medical process. No tachycardia, tremor or other signs of acute etOH w/d at this time. WBC is normal. Pt's chemistry labs remain pending at this time. Pt signed out to Dr. Camacho pending these labs, reassessment and final disposition. <Jordin Camacho - Last Filed: 04/05/20 09:54> ED HPI GENERAL MEDICAL PROBLEM - History of Present Illness INITIAL COMMENTS - FREE TEXT/NARRATIVE: Patient was signed out to me by Dr. Anguiano pending reevaluation at 7 AM I did reevaluate the patient and patient was sleeping comfortably. At this time his alcohol level was 130. We will reevaluate for clinical sobriety and p.o. toleration. Labs reviewed which revealed a normal CBC normal CMP, normal lipase and an alcohol level of 130 The patient was observed in the emergency department until clinical sobriety. The patient was able to tolerate p.o. At this time I did have a discussion with him regarding his alcohol use. He was planning on going to [place] today however he had the abdominal pain so decided to come here first. He has had rehabilitation in the past from this rehab center. I encouraged the patient to contact the rehabilitation center at [place] today as he seems amenable to undergoing detoxification. He was amenable to discharge at this time and had no further questions. He was given strict return precautions. DISPOSITION: The patient was discharged home in stable condition. The patient will follow up with primary care physician CONDITION: Fair PROCEDURES: None FINAL IMPRESSION(S)/DIAGNOSES: 1. Acute alcohol intoxication Jordin Camacho M.D. Course - Vital Signs Last Recorded V/S: Last Vital Signs Temp 36.6 C 04/05/20 09:20 Pulse 88 04/05/20 09:20 Resp 16 04/05/20 09:20 BP 107/72 04/05/20 09:20 Pulse Ox 96 04/05/20 09:20 - Orders/Labs/Meds Orders: Active Orders 24 hr Category Date Time Status Saline Lock Insert [OM.PC] Stat Oth 04/05/20 05:49 Ordered Labs: Laboratory Tests 04/05/20 04/05/20 Range/Units 06:10 06:10 WBC 9.11 (4.0-11.0) K/uL RBC 5.20 (4.50-5.90) M/uL Hgb 16.9 (13.0-17.0) g/dL Hct 48.2 (38.0-50.0) % MCV 92.7 (80.0-98.0) fL MCH 32.5 H (27.0-32.0) pg MCHC 35.1 (31.0-37.0) g/dL RDW Std Deviation 43.7 (28.0-62.0) fl RDW Coeff of Raz 13 (11.0-15.0) % Plt Count 282 (150-400) K/uL MPV 10.40 (7.40-12.00) fL Neut % (Auto) 68.3 (48.0-80.0) % Lymph % (Auto) 24.1 (16.0-40.0) % [place] % (Auto) 6.6 (0.0-15.0) % Eos % (Auto) 0.8 (0.0-7.0) % Baso % (Auto) 0.2 (0.0-1.5) % Neut # (Auto) 6.2 H (1.4-5.7) K/uL Lymph # (Auto) 2.2 (0.6-2.4) K/uL [place] # (Auto) 0.6 (0.0-0.8) K/uL Eos # (Auto) 0.1 (0.0-0.7) K/uL Baso # (Auto) 0.0 (0.0-0.1) K/uL Nucleated RBC % 0.0 /100WBC Nucleated RBCs # 0 K/uL Sodium 143 (136-148) mmol/L Potassium 4.2 (3.5-5.1) mmol/L Chloride 104 (98-107) mmol/L Carbon Dioxide 29.8 (21.0-32.0) mmol/L BUN 8 (7.0-18.0) mg/dL Creatinine 1.3 (0.8-1.3) mg/dL Est Cr Clr Drug Dosing 93.05 mL/min Estimated GFR (MDRD) > 60.0 ml/min Glucose 100 (74-106) mg/dL Calcium 9.5 (8.5-10.1) mg/dL Total Bilirubin 0.4 (0.2-1.0) mg/dL AST 24 (15-37) IU/L ALT 51 (14-63) IU/L Alkaline Phosphatase 76 (46-116) U/L Total Protein 8.0 (6.4-8.2) g/dL Albumin 4.2 (3.4-5.0) g/dL Globulin 3.8 (2.6-4.0) g/dL Albumin/Globulin Ratio 1.1 (0.9-1.6) Lipase 105 (73-393) U/L Ethyl Alcohol 130 mg/dL Meds: Medications Discontinued Medications Generic Name Dose Route Start Last Admin Trade Name Freq PRN Reason Stop Dose Admin Lactated Ringer's 1,000 mls @ 999 mls/hr 04/05/20 06:00 04/05/20 06:08 Ringers, Lactated IV 999 mls/hr ASDIRECTED ANA Administration Lorazepam 1 mg 04/05/20 05:49 04/05/20 06:08 Ativan IVPUSH 04/05/20 05:50 1 mg ONETIME ONE Administration Sodium Chloride 10 ml 04/05/20 05:49 04/05/20 06:24 Saline Flush FLUSH 10 ml ASDIRECTED PRN Administration Keep Vein Open Sodium Chloride 2.5 ml 04/05/20 05:49 04/05/20 06:24 Saline Flush FLUSH 2.5 ml ASDIRECTED PRN Administration Keep Vein Open Departure - Departure Time of Disposition: 09:03 Condition: Fair Sepsis Event Note (ED) - Focused Exam Vital Signs: Vital Signs Temp Pulse Resp BP Pulse Ox 04/05/20 09:20 36.6 C 88 16 107/72 96 04/05/20 08:54 86 100/63 97 04/05/20 08:24 82 113/70 96 04/05/20 07:53 82 122/69 95 04/05/20 07:24 79 106/66 96 04/05/20 06:56 77 14 107/69 96 04/05/20 05:41 35.9 C L 93 20 125/80 94 L
[2020-04-05] MEDS ORDERED: Lactated Ringers 1,000 ML IV SCH (06:00)
[2020-04-05 06:55] LABS: BLOOD UREA NITROGEN,BUN 8 mg/dL (7.0-18.0); CARBON DIOXIDE,CO2 29.8 mmol/L (21.0-32.0); CHLORIDE,CL 104 mmol/L (98-107); GLUCOSE RANDOM 100 mg/dL (74-106); LIPASE 105 U/L (73-393); POTASSIUM,K 4.2 mmol/L (3.5-5.1); SODIUM,NA 143 mmol/L (136-148)
[2020-04-05 09:21] VITALS: BP 107/72; PULSE 88
== END 2020-04-05 09:20 | disposition home or self-care (01) ==
LOC: MW.ED 05:33
DX: F10.120 Alcohol abuse with intoxication, uncomplicated (principal); Y90.6 Blood alcohol level of 120-199 mg/100 ml
CPT/HCPCS: 36415; 80053; 80179; 83690; 85025; 96374; 99284; J2060; J7120; 99283

== ENCOUNTER 2022-08-08 09:56 | Emergency (ER) | payer SELFPAY ==
[2022-08-08 11:52] VITALS: BP 106/72; PULSE 85
== END 2022-08-08 11:51 | disposition home or self-care (01) ==
LOC: MW.ED 09:56
DX: F10.10 Alcohol abuse, uncomplicated (principal); Z71.41 Alcohol abuse counseling and surveillance of alcoholic
CPT/HCPCS: 99283

== ENCOUNTER 2022-09-11 15:19 | Emergency (ER) | payer MEDICAID ==
[2022-09-11] MEDS ORDERED: LORazepam 2 MG/ML SDV IVPUSH ONE (16:11)
[2022-09-11] MEDS ORDERED: Ondansetron 4 MG/2 ML SDV IVPUSH ONE (16:11)
[2022-09-11] MEDS ORDERED: Sodium Chloride 0.9% 1,000 ML IV ONE (16:11)
[2022-09-11 16:21] LABS: APPEARANCE,URINE CLEAR; BILIRUBIN,URINE NEGATIVE (NEGATIVE); COLOR,URINE YELLOW; GLUCOSE,URINE NEGATIVE (NEGATIVE); KETONES,URINE NEGATIVE (NEGATIVE); LEUKOCYTE ESTERASE,URINE NEGATIVE (NEGATIVE); NITRITE,URINE NEGATIVE (NEGATIVE); OCCULT BLOOD,URINE NEGATIVE (NEGATIVE); PROTEIN,URINE NEGATIVE (NEGATIVE); UROBILINOGEN,URINE 0.2 EU/dL (<2.0)
[2022-09-11 16:29] LABS: AMPHETAMINES SCREEN, URINE NEGATIVE (CUTOFF=500); BARBITURATE SCREEN,URINE NEGATIVE (CUTOFF=200); BENZODIAZEPINES SCREEN,URINE NEGATIVE (CUTOFF=150); BUPRENORPHINE SCREEN,URINE NEGATIVE (CUTOFF=10); METHADONE SCREEN, URINE NEGATIVE (CUTOFF=200); METHAMPHETAMINES SCREEN, URINE NEGATIVE (CUTOFF=500); OXYCODONE SCREEN,URINE NEGATIVE (CUT0FF=100); PCP SCREEN,URINE NEGATIVE (CUTOFF=25); PROPOXYPHENE SCREEN,URINE NEGATIVE (CUTOFF=300); THC SCREEN,URINE 20 NG/ML NEGATIVE (CUTOFF=50)
[2022-09-11 17:00] LABS: BASOPHILS PERCENT AUTO 0.5 % (0.0-1.5); EOSINOPHILS ABSOLUTE AUTO 0.1 K/uL (0.0-0.7); EOSINOPHILS PERCENT AUTO 2.6 % (0.0-7.0); HEMATOCRIT 39.5 % (38.0-50.0); HEMOGLOBIN 13.7 g/dL (13.0-17.0); LYMPHOCYTES ABSOLUTE AUTO 1.3 K/uL (0.6-2.4); LYMPHOCYTES PERCENT AUTO 30.1 % (16.0-40.0); MEAN CORPUSCULAR HEMOGLOBIN 33.7 pg (27.0-32.0); MEAN CORPUSCULAR HGB CONC 34.7 g/dL (31.0-37.0); MEAN CORPUSCULAR VOLUME 97.1 fL (80.0-98.0); MONOCYTES ABSOLUTE AUTO 0.2 K/uL (0.0-0.8); MONOCYTES PERCENT AUTO 5.7 % (0.0-15.0); NEUTROPHILS ABSOLUTE AUTO 2.6 K/uL (1.4-5.7); NEUTROPHILS PERCENT AUTO 61.1 % (48.0-80.0); NRBC ABSOLUTE 0 K/uL; PLATELET COUNT,PLT 177 K/uL (150-400); RED BLOOD CELL COUNT 4.07 M/uL (4.50-5.90); WHITE BLOOD CELL COUNT,WBC 4.22 K/uL (4.0-11.0)
[2022-09-11 17:33] LABS: A/G RATIO 1.2 (0.9-1.6); ACETAMINOPHEN <2.0 ug/mL; ALANINE AMINOTRANSFERASE,ALT 177 IU/L (14-63); ALBUMIN 3.4 g/dL (3.4-5.0); ALKALINE PHOSPHATASE 106 U/L (46-116); ASPARTATE AMNIOTRANSFERASE,AST 124 IU/L (15-37); BILIRUBIN TOTAL 0.2 mg/dL (0.2-1.0); BLOOD UREA NITROGEN,BUN 6 mg/dL (7.0-18.0); CALCIUM 8.2 mg/dL (8.5-10.1); CARBON DIOXIDE,CO2 27.3 mmol/L (21.0-32.0); CHLORIDE,CL 107 mmol/L (98-107); CREATININE 0.8 mg/dL (0.8-1.3); EST CRCL DRUG DOSING (CG) 148.43 mL/min; ETHANOL BLOOD MEDICAL 299 mg/dL; GLUCOSE RANDOM 115 mg/dL (74-106); LIPASE 350 U/L (73-393); MAGNESIUM 1.5 mg/dL (1.8-2.4); POTASSIUM,K 3.7 mmol/L (3.5-5.1); PROTEIN TOTAL,TP 6.3 g/dL (6.4-8.2); SODIUM,NA 145 mmol/L (136-148); TSH ULTRASENSITIVE 0.14 uIU/mL (0.36-3.74)
[2022-09-11 17:37] LABS: ESTIMATED GFR 120 mL/min (>60); SALICYLATE < 0.2 mg/dL (0.0-20.0)
[2022-09-11] MEDS ORDERED: Magnesium Oxide 400 MG Tab PO ONE (17:50)
[2022-09-11 18:17] LABS: T4 FREE 0.74 ng/dL (0.76-1.46)
[2022-09-11] MEDS ORDERED: chlordiazePOXIDE 25 MG Cap PO ONE (18:18)
[2022-09-11 19:36] VITALS: BP 146/71; PULSE 71
== END 2022-09-11 19:35 ==
LOC: MW.ED 15:19
DX: F10.99 Alcohol use, unspecified with unspecified alcohol-induced disorder (principal); Y90.8 Blood alcohol level of 240 mg/100 ml or more
CPT/HCPCS: 36415; 80053; 80143; 80179; 80305; 80307; 81003; 83690; 83735; 84439; 84443; 85025; 93005; 96361; 96374; 96375; 99284; A9270; J2060; J2405; J7030; 93010

== ENCOUNTER 2022-10-21 10:52 | Emergency (ER) | payer SELFPAY ==
[2022-10-21 12:53] VITALS: BP 116/90; PULSE 93
== END 2022-10-21 12:52 | disposition home or self-care (01) ==
LOC: MW.ED 10:52
DX: F19.10 Other psychoactive substance abuse, uncomplicated (principal); Z71.41 Alcohol abuse counseling and surveillance of alcoholic
CPT/HCPCS: 99283; 99284